=== PATIENT | female | born 1970 | race Caucasian/White ===

== ENCOUNTER → 2019-02-18 | Outpatient (CLI) | payer BC ==
[2019-02-21 07:07] LABS: CHLAMYDIA TRACHOMATIS, NAA Negative (Negative); NEISSERIA GONORRHOEAE, NAA Negative (Negative)
== END | disposition home or self-care (01) ==
LOC: LAB SHORT 15:25 → LAB EV 15:25
PROVIDERS: Nurse Practitioner
DX: Z11.3 Encounter for screening for infections with a predominantly sexual mode of transmission (principal)
CPT/HCPCS: 87491; 87591; G0145

== ENCOUNTER 2019-12-06 23:50 | Emergency (ER) | payer BC ==
[~2019-12-06] VITALS: Ht 170.2 cm; Wt 63.5 kg
[2019-12-07] MEDS ORDERED: CYANOCOBALAM (00:04)
[2019-12-07] MEDS ORDERED: EUTHYROX112 MC1 (00:04)
[2019-12-07] MEDS ORDERED: Alprazolam1 MG PO (00:05)
[2019-12-07] MEDS ORDERED: OXYC10TA19 (00:05)
[2019-12-07] MEDS ORDERED: Percocet 5-3251 EACH PO (00:58)
== END 2019-12-07 01:47 | disposition home or self-care (01) ==
LOC: ER 23:50
DX: S92.351A Displaced fracture of fifth metatarsal bone, right foot, initial encounter for closed fracture (principal); S52.121A Displaced fracture of head of right radius, initial encounter for closed fracture; S20.212A Contusion of left front wall of thorax, initial encounter; Z79.899 Other long term (current) drug therapy; W10.9XXA Fall (on) (from) unspecified stairs and steps, initial encounter
CPT/HCPCS: 73090; 73630; 99283-25; A9270; A9270-GY

== ENCOUNTER 2022-03-06 09:28 | Emergency (ER) | payer BC ==
[~2022-03-06] VITALS: Ht 167.6 cm; Wt 61.2 kg
[~2022-03-06 09:28] MED LIST: ALBU90OI INH; ALPR1 PO; Acetaminophen325 M1 PO; Alprazolam1 MG PO; CYANOCOBALAM; EUTHYROX112 MC1; LEVSOD112 PO; MONT10T PO; OXYC10TA19; PROGESTERONE1000 GM; Percocet 5-3251 EACH PO; SYMBICORT 160-4.6 GM INH; Testosterone5 GM
[2022-03-06 11:01] LABS: Hemoglobin 13.4 g/dL (11.5-16.0); Mean Corpuscular HGB 30.2 pg (26.0-34.0); Mean Corpuscular HGB Conc 34.4 g/dL (31.5-36.5); Mean Corpuscular Volume 88 fL (80-100); Mean Platelet Volume 9.6 fL (9.1-12.4); Platelet Count 254 K/mm3 (150-400); RDW Coefficient Variation 12.2 % (11.7-14.2); RDW Standard Deviation 39.7 fL (35.1-46.3); Red Blood Cell Count 4.43 M/mm3 (3.80-5.20); White Blood Cell Count 10.01 K/mm3 (4.00-11.30)
[2022-03-06 11:16] LABS: Influenza A, PCR NEGATIVE (NEGATIVE); Influenza B, PCR NEGATIVE (NEGATIVE); Resp Syncytial Virus, PCR NEGATIVE (NEGATIVE); SARS-Cov-2 (COVID-19) PCR, MMC NEGATIVE (NEGATIVE)
[2022-03-06 11:45] LABS: BAND PERCENT MAN 38 % (0-8); BASOPHILS PERCENT MAN 1 % (0-2); EOSINOPHILS PERCENT MAN 0 % (0-6); LYMPHOCYTES PERCENT MAN 5 % (21-46); MONOCYTES PERCENT MAN 9 % (4-13); SEG NEUTROPHILS PERCENT MAN 47 % (41-73); TOTAL CELLS COUNTED 100
[2022-03-06 11:47] LABS: Albumin, Blood 2.9 g/dL (3.4-5.0); Albumin/Globulin Ratio 0.7 (0.8-1.8); Bilirubin, Total 0.7 mg/dL (0.1-1.0); Calcium, Blood 8.7 mg/dL (8.5-10.1); Creatinine, Blood 0.62 mg/dL (0.40-1.00); Globulin, Blood 4.3 g/dL (2.2-4.0); Magnesium, Blood 1.9 mg/dL (1.6-2.4); Potassium, Blood 3.1 mmol/L (3.5-5.5); Total Protein, Blood 7.2 g/dL (6.4-8.2)
[2022-03-06] MEDS ORDERED: ONDA4ODT MM (13:51)
[2022-03-06] MEDS ORDERED: PROBIOTIC1 EA13 PO (13:51)
[2022-03-06] MEDS ORDERED: METR500 PO (13:51)
[2022-03-06] MEDS ORDERED: CIPR500 PO (13:51)
== END 2022-03-06 16:55 | disposition home or self-care (01) ==
LOC: ER 09:28
PROVIDERS: Physician Assistant
DX: K52.89 Other specified noninfective gastroenteritis and colitis (principal); Z20.822 Contact with and (suspected) exposure to COVID-19; Z88.5 Allergy status to narcotic agent
CPT/HCPCS: 0241U; 36415; 74177; 80053; 83735; 85025; J0744; J1885; J2405; J7030; Q9967

== ENCOUNTER 2022-03-08 04:50 | Inpatient (IN) | payer BC, OTHER ==
[~2022-03-08] VITALS: Ht 167.6 cm; Wt 64.6 kg
[~2022-03-08 04:50] MED LIST changes: +CIPR500 PO; +METR500 PO; +ONDA4ODT MM; +PROBIOTIC1 EA13 PO
[2022-03-08 05:24] LABS: BASOPHILS ABSOLUTE AUTO 0.09 K/mm3 (0.00-0.23); BASOPHILS PERCENT AUTO 1 % (0-2); EOSINOPHILS ABSOLUTE AUTO 0.11 K/mm3 (0.00-0.68); EOSINOPHILS PERCENT AUTO 1 % (0-6); Hemoglobin 11.5 g/dL (11.5-16.0); IMMATURE GRAN ABSOLUTE AUTO 0.08 K/mm3 (0.00-0.10); IMMATURE GRAN PERCENT AUTO 1 % (0-1); LYMPHOCYTES PERCENT AUTO 7 % (21-46); MONOCYTES ABSOLUTE AUTO 0.97 K/mm3 (0.16-1.47); MONOCYTES PERCENT AUTO 9 % (4-13); Mean Corpuscular HGB 29.3 pg (26.0-34.0); Mean Corpuscular HGB Conc 33.8 g/dL (31.5-36.5); Mean Corpuscular Volume 87 fL (80-100); Mean Platelet Volume 9.1 fL (9.1-12.4); NEUTROPHILS ABSOLUTE AUTO 8.71 K/mm3 (1.96-9.15); NEUTROPHILS PERCENT AUTO 82 % (41-73); Platelet Count 282 K/mm3 (150-400); RDW Coefficient Variation 12.1 % (11.7-14.2); Red Blood Cell Count 3.92 M/mm3 (3.80-5.20); White Blood Cell Count 10.66 K/mm3 (4.00-11.30)
[2022-03-08 05:52] LABS: Albumin, Blood 2.4 g/dL (3.4-5.0); Albumin/Globulin Ratio 0.6 (0.8-1.8); Bilirubin, Total 0.5 mg/dL (0.1-1.0); Bun/Creatinine Ratio 18.4 (12.0-20.0); Calcium, Blood 8.5 mg/dL (8.5-10.1); Creatinine, Blood 0.54 mg/dL (0.40-1.00); Globulin, Blood 4.1 g/dL (2.2-4.0); Potassium, Blood 3.2 mmol/L (3.5-5.5); Total Protein, Blood 6.5 g/dL (6.4-8.2)
--- NOTE | 2022-03-08 20:01 | NUR ---
CALLED DR TRIANA REGARDING PATIENT PAIN AND FEVER. EUFEMIA CANNOT TAKE DILAUDID DUE TO HYPERSENSITIVITY. ORDERS GIVEN FOR ROMINA, TYLENOL, AND D/C DILAUDID
--- NOTE | 2022-03-09 04:37 | NUR ---
CALLED DR ALEJANDRE TO UPDATE THAT PATIENT IS HAVING JOANN WATERY STOOLS. ORDERS GIVEN FOR GI CONSULT, CBC, NPO, AND H&H Q6 TIMES 4
[2022-03-09 05:48] LABS: Hemoglobin 10.3 g/dL (11.5-16.0); Mean Corpuscular HGB 30.1 pg (26.0-34.0); Mean Corpuscular HGB Conc 33.2 g/dL (31.5-36.5); Mean Corpuscular Volume 91 fL (80-100); Mean Platelet Volume 9.5 fL (9.1-12.4); Platelet Count 269 K/mm3 (150-400); RDW Coefficient Variation 12.3 % (11.7-14.2); RDW Standard Deviation 40.7 fL (35.1-46.3); Red Blood Cell Count 3.42 M/mm3 (3.80-5.20); White Blood Cell Count 7.63 K/mm3 (4.00-11.30)
[2022-03-09 06:06] LABS: Albumin, Blood 2.1 g/dL (3.4-5.0); Albumin/Globulin Ratio 0.6 (0.8-1.8); Bilirubin, Total 0.3 mg/dL (0.1-1.0); Bun/Creatinine Ratio 15.1 (12.0-20.0); Calcium, Blood 7.8 mg/dL (8.5-10.1); Creatinine, Blood 0.6 mg/dL (0.40-1.00); Globulin, Blood 3.3 g/dL (2.2-4.0); Potassium, Blood 3.2 mmol/L (3.5-5.5); Total Protein, Blood 5.4 g/dL (6.4-8.2)
[2022-03-09 06:20] LABS: BAND PERCENT MAN 23 % (0-8); BASOPHILS PERCENT MAN 0 % (0-2); EOSINOPHILS ABSOLUTE MAN 0.15 K/mm3 (0.00-0.68); EOSINOPHILS PERCENT MAN 2 % (0-6); LYMPHOCYTES ABSOLUTE MAN 1.14 K/mm3 (0.84-5.20); LYMPHOCYTES PERCENT MAN 15 % (21-46); MONOCYTES ABSOLUTE MAN 0.45 K/mm3 (0.16-1.47); MONOCYTES PERCENT MAN 6 % (4-13); MYELOCYTE ABSOLUTE MAN 0.07 K/mm3 (0.00-0.00); MYELOCYTE PERCENT MAN 1 % (0-0); NEUTROPHILS ABSOLUTE MAN 5.79 K/mm3 (1.96-9.15); SEG NEUTROPHILS PERCENT MAN 53 % (41-73); TOTAL CELLS COUNTED 100
--- NOTE | 2022-03-09 06:38 | NUR ---
PATIENT IN MODERATE AMOUNT OF PAIN THROUGHOUT SHIFT. NPO AT MIDNIGHT. 0315 PATIENT WENT TO RESTROOM AND HAD COPIOUS AMOUNTS OF BRIGHT RED JOANN WATERY STOOLS. MD CALLED AND ORDERS GIVEN FOR GI CONSULT AND SERIAL H&H Q6 X4. ALERT AND ORIENTED, RA, 20 RAC W/ NS @100, TELE SR.
[2022-03-09 11:29] LABS: Hematocrit 20.5 % (33.0-51.0); Hemoglobin 6.9 g/dL (11.5-16.0)
--- NOTE | 2022-03-09 17:31 | NUR ---
0700: Receive ongoing report from nurse. Pt having copious amounts of blood coming out when making a bowel movement. Nun caps filled with 500cc of blood and large clots. 0755 78/45 HR 104 RR 14 Temp 99.3 02 100% Physician paged about copious amount of blood in stool, hypotensive but asymptomatic other than abd pain. Physician stated no bolus but to keep fluids at 100ml/hr. Made Charge nurse Krystin and Loni aware that patient needs a PCU or ICU. Patient is actively bleeding no nausea and vomiting but hypotensive. H/H 10.6 REPEAT IS AT NOON. 0806 82/52 HR 119 Physician at bedside. Saw the nun caps filled with blood. H/H order, 2PRBC om standby, Lactic Acid, Protonix Drip ordered. TYPE AND SCREEN AND BLOOD ADMINSTRATIONS Hemoglobin 6.9 - Lactic Acid 2 - Large amounts of blood stool 2000cc from 7am-2pm Blood Transfuse -- charge nurse called GI consult and transfer to ICU Bedside Report given to JESUS HECTOR. Charge naga
--- NOTE | 2022-03-09 17:41 | NUR ---
03/09/22 1742 Ronny Galdamez PT IN ICU. CONTINUOUS MONITOR. DR. PERERA HERE PROVIDING SEDATION.
--- NOTE | 2022-03-09 19:05 | NUR ---
SHIFT SUMMARY PT ARRIVED TO ICU FROM MED FLOOR, BEDSIDE REPORT GIVEN UPON ARRIVAL. PT ADMITTED FOR RECTAL BLEEDING, SUBSTANTIAL INCREASE IN BLEEDING THIS AM AND T/O DAY, APPROXIMATELY 2L OUT. PT ALERT AND ORIENTED, FOLLOWING COMMANDS, DYSON. BP HYPOTENSIVE, FIRST UNIT OF BLOOD INFUSING UPON ARRIVAL, 2 TOTAL UNITS ADMINSTERED. PT DID NOT RECEIVE ANY PRESSORS. SATS >90% ON RA. SINUS TACH ON THE MONITOR. AFTER ARRIVAL SECOND IV ESTABLISHED AND PT TAKEN FOR CT SCAN. SHORTLY AFTER GI AT BEDSIDE FOR SCOPE. DIAGNOSIS OF SEVERE ULCERATIVE COLITIS. NO COMPLICATIONS DURING SCOPE, 2L LR GIVEN DURING THAT TIME. PT AWAKENED WITHOUT ISSUE. ASSISTED TO BEDSIDE COMMODE FOR MODERATE AMNT OF BLOODY STOOL, ALSO APPROX 2O0ML URINE OUT. PT TOLERATING WATER AT THIS TIME. REPORT GIVEN TO ONCOMING NURSE.
[2022-03-09 20:03] LABS: Hematocrit 24.9 % (33.0-51.0); Hemoglobin 8.6 g/dL (11.5-16.0)
[2022-03-09 21:35] LABS: Adenovirus F 40/41 Not Detected (NOT DETECT); Astrovirus Not Detected (NOT DETECT); Campylobacter Sp Not Detected (NOT DETECT); Cryptosporidium Not Detected (NOT DETECT); Cyclospora Cayetanensis Not Detected (NOT DETECT); E. Coli O157 Not Detected (NOT DETECT); Entamoeba Histolytica Not Detected (NOT DETECT); Enteroaggregative E. coli-EAEC Not Detected (NOT DETECT); Enteropathogenic E. coli-EPEC Not Detected (NOT DETECT); Enterotoxigenic E. coli-ETEC Not Detected (NOT DETECT); Giardia Lamblia Not Detected (NOT DETECT); Norovirus GI/GII Not Detected (NOT DETECT); Plesiomonas Shigelloides Not Detected (NOT DETECT); Rotavirus A Not Detected (NOT DETECT); Salmonella Sp Not Detected (NOT DETECT); Sapovirus Not Detected (NOT DETECT); Shiga Toxin-prod E. coli-STEC Not Detected (NOT DETECT); Shigella/Enteroin E. coli-EIEC Not Detected (NOT DETECT); Vibrio Cholerae Not Detected (NOT DETECT); Vibrio Sp Not Detected (NOT DETECT); Yersinia Enterocolitica Not Detected (NOT DETECT)
--- NOTE | 2022-03-09 22:47 | NUR ---
PT REQUEST TO LEAVE UNIT TO WALK AROUND. EDUCATED HER THAT WAS NO SAFE DUE TO RECENT SEIZURE ACTIVITY AND MEDICATIONS GIVEN. PT WAS ARGUMENTATIVE AND STATED SHE WANTED TO LEAVE AMA. PT WAS EDUCATED AGAIN THAT SHE WOULD HAVE TO HAVE SOMEONE SIGN HER OUT IF SHE WANTED TO LEAVE AMA.
[2022-03-09 23:21] LABS: Hematocrit 20.6 % (33.0-51.0); Hemoglobin 7.3 g/dL (11.5-16.0)
[2022-03-10 02:05] LABS: Hematocrit 19.2 % (33.0-51.0); Hemoglobin 6.7 g/dL (11.5-16.0)
[2022-03-10 03:34] LABS: BASOPHILS ABSOLUTE AUTO 0.04 K/mm3 (0.00-0.23); BASOPHILS PERCENT AUTO 0 % (0-2); EOSINOPHILS ABSOLUTE AUTO 0.02 K/mm3 (0.00-0.68); EOSINOPHILS PERCENT AUTO 0 % (0-6); Hematocrit 20.6 % (33.0-51.0); Hemoglobin 7.1 g/dL (11.5-16.0); IMMATURE GRAN ABSOLUTE AUTO 0.16 K/mm3 (0.00-0.10); IMMATURE GRAN PERCENT AUTO 1 % (0-1); LYMPHOCYTES ABSOLUTE AUTO 0.93 K/mm3 (0.84-5.20); LYMPHOCYTES PERCENT AUTO 8 % (21-46); MONOCYTES ABSOLUTE AUTO 0.37 K/mm3 (0.16-1.47); MONOCYTES PERCENT AUTO 3 % (4-13); Mean Corpuscular HGB 29.6 pg (26.0-34.0); Mean Corpuscular HGB Conc 34.5 g/dL (31.5-36.5); Mean Platelet Volume 9.5 fL (9.1-12.4); NEUTROPHILS ABSOLUTE AUTO 10.88 K/mm3 (1.96-9.15); NEUTROPHILS PERCENT AUTO 88 % (41-73); Platelet Count 294 K/mm3 (150-400); RDW Coefficient Variation 13.6 % (11.7-14.2); RDW Standard Deviation 42.8 fL (35.1-46.3)
[2022-03-10 03:42] LABS: Mean Corpuscular Volume 86 fL (80-100)
[2022-03-10 04:01] LABS: Albumin, Blood 1.6 g/dL (3.4-5.0); Albumin/Globulin Ratio 0.6 (0.8-1.8); Bilirubin, Total 0.5 mg/dL (0.1-1.0); Bun/Creatinine Ratio 12.9 (12.0-20.0); Calcium, Blood 7.1 mg/dL (8.5-10.1); Creatinine, Blood 0.62 mg/dL (0.40-1.00); Globulin, Blood 2.6 g/dL (2.2-4.0); Potassium, Blood 3.6 mmol/L (3.5-5.5); Total Protein, Blood 4.2 g/dL (6.4-8.2)
--- NOTE | 2022-03-10 05:33 | NUR ---
SHIFT SUMMERY PT IS ALERT AND ORIENTED X4, S/P UPPER AND LOWER ENDOSCOPY YESTERDAY EVENING. PT REQUIRED A TRANSFUSION OF PRBC ON MY SHIFT DUE TO LOW H&H. SHE HAD 3 LARGE BRIGHT RED BLOODY STOOLS W/CLOTS AT THE BEGINNING OF THE SHIFT AND ONE MUCH SMALLER ON AROUND 0100. SHE HAS HAD NO N/V. BP HAVE BEEN SOFT, SHE RECEIVED A 250ML BOLUS PRIOR TO HER BLOOD TRANSFUSION. SHE HAS LEVOPHED ON SB IF NEEDED. SHE HAS BEEN SR/ST ON THE GREENSKEEPER LABORER. SHE WAS MEDICATED FOR PAIN EARLY IN THE SHIFT AND HAS NOT REQUIRED ANYTHING FURTHER THE REMAINDER OF THE NIGHT. A NEW RIGHT UPPER ARM POWER GLIDE WAS PLACED, PT TOLERATED WELL. SHE IS ON ROOM AIR, OXYGEN SAT >95% THROUGHOUT THE NIGHT. SHE HAS VOIDED SEVERAL TIMES IN THE BEDSIDE COMMODE. SHE HAS BEEN AFEBRILE AND HAS HAD NO EPISODES OF ACUTE DISTRESS SO FAR THROUGHTOUT THIS SHIFT.
[2022-03-10 08:30] LABS: Hematocrit 22.5 % (33.0-51.0)
--- NOTE | 2022-03-10 10:29 | NUR ---
SHIFT ASSESSMENT ASSUMED CARE OF PT @ 0700. PT ALERT AND ORIENTED, FOLLOWING COMMANDS, DYSON. INITIALLY ON 2MCG'S LEVOPHED, TITRATED OFF BY 0800 c MAP >65. PT C/O 09/09 ABD PAIN, MEDICATED WITH PRN PAIN MEDS. UTILIZING BEDSIDE COMMODE WITH STANDBY ASSIST. TWO SMALL <10ML BLOOD CLOTS FROM RECTUM THIS AM. TOLERATING CLEAR LIQUIDS AT THIS TIME, NO N/V. WILL MONITOR CLOSELY.
[2022-03-10 17:33] LABS: Hematocrit 21.8 % (33.0-51.0); Hemoglobin 7.7 g/dL (11.5-16.0)
--- NOTE | 2022-03-10 18:35 | NUR ---
SHIFT SUMMARY PT REMAINS ALERT AND ORIENTED, FOLLOWING COMMANDS, AMBULATING WITH S/B ASSISTANCE TO BEDSIDE COMMODE, FREQUENTLY REQUIRING ASSISTANCE TO COMMODE TO URINATE. NO OBVIOUS BLOODY STOOLS TODAY, APPEARS TO BE MUCOUSY c STOOL, SMALL AMNT OF STOOL. DIET ADVANCED TO FULL LIQUID, TOLERATING WELL, NO N/V. BP WNL, REMAINS OFF PRESSORS. Q8H H&H. PTS PAIN IS INCREASING, THIS NURSE DISCUSSED OPTIONS FOR PAIN CONTROL WITH PT, WILL RELAY TO ONCOMING NURSE.
[2022-03-11 06:37] LABS: BASOPHILS ABSOLUTE AUTO 0.02 K/mm3 (0.00-0.23); BASOPHILS PERCENT AUTO 0 % (0-2); EOSINOPHILS ABSOLUTE AUTO 0.01 K/mm3 (0.00-0.68); EOSINOPHILS PERCENT AUTO 0 % (0-6); Hemoglobin 7.4 g/dL (11.5-16.0); IMMATURE GRAN ABSOLUTE AUTO 0.08 K/mm3 (0.00-0.10); IMMATURE GRAN PERCENT AUTO 1 % (0-1); LYMPHOCYTES ABSOLUTE AUTO 0.77 K/mm3 (0.84-5.20); LYMPHOCYTES PERCENT AUTO 9 % (21-46); MONOCYTES ABSOLUTE AUTO 0.65 K/mm3 (0.16-1.47); MONOCYTES PERCENT AUTO 7 % (4-13); Mean Corpuscular HGB 30.6 pg (26.0-34.0); Mean Corpuscular HGB Conc 35.2 g/dL (31.5-36.5); Mean Corpuscular Volume 87 fL (80-100); Mean Platelet Volume 9.5 fL (9.1-12.4); NEUTROPHILS ABSOLUTE AUTO 7.58 K/mm3 (1.96-9.15); NEUTROPHILS PERCENT AUTO 83 % (41-73); Platelet Count 314 K/mm3 (150-400); RDW Coefficient Variation 14.2 % (11.7-14.2); RDW Standard Deviation 44.9 fL (35.1-46.3); Red Blood Cell Count 2.42 M/mm3 (3.80-5.20); White Blood Cell Count 9.11 K/mm3 (4.00-11.30)
[2022-03-11 06:55] LABS: Albumin, Blood 1.8 g/dL (3.4-5.0); Anion Gap 4 mmol/L (6-16); Blood Urea Nitrogen 6 mg/dL (8-24); Bun/Creatinine Ratio 11.7 (12.0-20.0); CO2, Blood 29 mmol/L (21-32); Calcium, Blood 7.8 mg/dL (8.5-10.1); Chloride, Blood 107 mmol/L (98-108); Creatinine, Blood 0.51 mg/dL (0.40-1.00); Glomerular Filtration Rate 114 (60-); Glucose, Blood 152 mg/dL (70-99); Phosphorus, Blood 3.2 mg/dL (2.5-4.9); Potassium, Blood 3.9 mmol/L (3.5-5.5); Sodium, Blood 140 mmol/L (136-145)
--- NOTE | 2022-03-11 07:38 | NUR ---
SHIFT ASSESSMENT ASSUMED CARE OF PT @ 0700. PT ALERT AND ORIENTED, SITTING UPRIGHT IN BED. PT APPEARS VERY UNCOMFORTBALE, C/O 7/10 [address] ASTORGA NOTIFIED REGARDING PAIN, NEW ORDERS PLACED. UP MOST OF THE NIGHT TO GET TO BEDSIDE COMMODE PER NOC NURSE AND PT, NO BLOODY STOOL, LIQUID/BROWN. NSR ON LICENSED PSYCHIATRIC TECHNICIAN, BP STABLE-MAP >65, PER PT HER NORMAL BP IS LOW. H&H TRENDED DOWN ANOTHER 0.3 FROM 7.7 TO 7.4. NO OTHER ACUTE CHANGES FROM YESTERDAY.
--- NOTE | 2022-03-11 09:17 | NUR ---
UPDATE PT NOW MEDICAL STATUS, NO TELE. TOLERATING IV PAIN MEDS BUT CONTINUES TO COMPLAIN OF MODERATE-SEVERE PAIN. THIS NURSE DISCUSSED OTHER OPTIONS FOR TREATING PAIN WELL REALISTIC PAIN EXPECTATIONS.
--- NOTE | 2022-03-11 14:28 | NUR ---
SHIFT SUMMARY PT REMAINS ALERT AND ORIENTED, FOLLOWING COMMANDS, TOLERATING FULL LIQUID DIET WELL. PT CONTINUES TO C/O ABDOMINAL PAIN 09/09 BUT WITH SECOND DOSE OF DILAUDID PAIN IS NOW TOLERABLE PER PATIENT. PT HAD MULTIPLE SMALL LOOSE BOWEL TODAY, NO BLOODY STOOL. VSS. REPORT GIVEN TO MEDICAL FLOOR NURSE, ADMITTED TO ROOM 340.
--- NOTE | 2022-03-11 14:49 | NUR ---
ARRIVAL: PT ARRIVED TO ROOM 340 FROM ICU 13 AT 1440 VIA WHEELCHAIR. PT ORIENTED TO ROOM AND HOW TO USE BED CONTROLS AND CALL LIGHT. ALL BELONGINGS SENT WITH PT.
--- NOTE | 2022-03-11 17:05 | NUR ---
SHIFT SUMMARY: PT ALERT AND ORIENTED X4. PT BROUGHT FROM ICU13 THIS AFTERNOON. PT HAS NOT C/O PAIN, N/V SINCE ADMISSION. PT IS VERY PLEASANT AND COOPERATIVE WITH CARE. POWERGLIDE AND IV FLUSH W/O COMPLICATIONS. PT CURRENTLY INDEPENDENT IN SHOWER. CALL LIGHT IN REACH. WILL CONTINUE TO MONITOR.
--- NOTE | 2022-03-12 03:53 | NUR ---
Patient resting in bed, prn medication given for pain and nausea, pain continues to be an issue, only partially resolved with current prn medication.
[2022-03-12 05:09] LABS: HBSAG SCREEN Negative (Negative); HCV AB <0.1 (0.0-0.9); HEP A AB, IGM Negative (Negative); HEP B CORE AB, IGM Negative (Negative)
[2022-03-12 06:04] LABS: BASOPHILS ABSOLUTE AUTO 0.01 K/mm3 (0.00-0.23); BASOPHILS PERCENT AUTO 0 % (0-2); EOSINOPHILS PERCENT AUTO 0 % (0-6); Hematocrit 22.1 % (33.0-51.0); Hemoglobin 7.3 g/dL (11.5-16.0); IMMATURE GRAN ABSOLUTE AUTO 0.09 K/mm3 (0.00-0.10); IMMATURE GRAN PERCENT AUTO 1 % (0-1); LYMPHOCYTES ABSOLUTE AUTO 0.65 K/mm3 (0.84-5.20); LYMPHOCYTES PERCENT AUTO 9 % (21-46); MONOCYTES ABSOLUTE AUTO 0.28 K/mm3 (0.16-1.47); MONOCYTES PERCENT AUTO 4 % (4-13); Mean Corpuscular HGB 29.4 pg (26.0-34.0); Mean Corpuscular Volume 89 fL (80-100); Mean Platelet Volume 9.7 fL (9.1-12.4); NEUTROPHILS ABSOLUTE AUTO 5.99 K/mm3 (1.96-9.15); NEUTROPHILS PERCENT AUTO 85 % (41-73); Platelet Count 417 K/mm3 (150-400); RDW Coefficient Variation 13.9 % (11.7-14.2); RDW Standard Deviation 44.9 fL (35.1-46.3); Red Blood Cell Count 2.48 M/mm3 (3.80-5.20); White Blood Cell Count 7.02 K/mm3 (4.00-11.30)
[2022-03-12 10:56] LABS: Bilirubin, Total 0.2 mg/dL (0.1-1.0); Potassium, Blood 4.2 mmol/L (3.5-5.5)
[2022-03-12 10:58] LABS: Albumin/Globulin Ratio 0.7 (0.8-1.8); Bun/Creatinine Ratio 13.2 (12.0-20.0); Calcium, Blood 8.3 mg/dL (8.5-10.1); Creatinine, Blood 0.53 mg/dL (0.40-1.00); Magnesium, Blood 2.6 mg/dL (1.6-2.4); Phosphorus, Blood 4.2 mg/dL (2.5-4.9)
[2022-03-12 10:59] LABS: C-REACTIVE PROTEIN, EXT RANGE 4.28 mg/dL (0.000-0.300); Percent Saturation 19.9 % (15.0-50.0)
[2022-03-12 14:10] LABS: QUANTIFERON MITOGEN VALUE >10.00 IU/mL (.); QUANTIFERON NIL VALUE 0.06 IU/mL (.); QUANTIFERON TB1 AG VALUE 0.17 IU/mL (.); QUANTIFERON TB2 AG VALUE 0.13 IU/mL (.); QUANTIFERON-TB GOLD PLUS Negative (Negative)
--- NOTE | 2022-03-12 16:22 | NUR ---
Received bedside report from ongoing nurse. Pt resting comfortably in bed. Pt states it's been hard trying to get her pain under control. Spoke with physicia made changes to her pain medication check emar.
--- NOTE | 2022-03-13 04:45 | NUR ---
CHIEF INNOVATION OFFICER SUMMARY NO ACUTE EVENTS. PT HAS BEEN UP AD ТАТЬЯНА/INDEPENDENT IN ROOM. DC'D LEFT AC IV DUE TO LEAKING; DILLAN POWER GLIDE--DOES NOT DRAW. PT A/OX4. HAS BEEN ON FULL LIQUID DIET--CHICK BROTH, JELLO, AND YOGURT THIS SHIFT-- PT HAD SOME INCREASED NAUSEA AND PAIN AFTER EATING. PT CONT TO REPORT PAIN IN ABDOMEN; MED W/ALTERNATING DILAUDID AND PERCOCET P/EMAR. PT REPORTS NO APPARENT VISIBLE BLOOD IN STOOL; CONT TO HAVE SMALL LOOSE STOOLS. VS REVIEWED/STABLE. ABLE TO MAKE NEEDS KNOWN; CALL LIGHT IN REACH.
[2022-03-13 05:44] LABS: BASOPHILS ABSOLUTE AUTO 0.01 K/mm3 (0.00-0.23); BASOPHILS PERCENT AUTO 0 % (0-2); EOSINOPHILS PERCENT AUTO 0 % (0-6); Hematocrit 20.7 % (33.0-51.0); Hemoglobin 6.8 g/dL (11.5-16.0); IMMATURE GRAN PERCENT AUTO 3 % (0-1); LYMPHOCYTES ABSOLUTE AUTO 0.88 K/mm3 (0.84-5.20); LYMPHOCYTES PERCENT AUTO 13 % (21-46); MONOCYTES ABSOLUTE AUTO 0.49 K/mm3 (0.16-1.47); MONOCYTES PERCENT AUTO 7 % (4-13); Mean Corpuscular HGB 30.4 pg (26.0-34.0); Mean Corpuscular HGB Conc 32.9 g/dL (31.5-36.5); Mean Corpuscular Volume 92 fL (80-100); Mean Platelet Volume 9.5 fL (9.1-12.4); NEUTROPHILS ABSOLUTE AUTO 5.02 K/mm3 (1.96-9.15); NEUTROPHILS PERCENT AUTO 76 % (41-73); NRBC ABSOLUTE 0.02 K/mm3 (0.00-0.02); NRBC Auto 0.3 /100 WBC (0.0-0.2); Platelet Count 440 K/mm3 (150-400); RDW Coefficient Variation 13.7 % (11.7-14.2); RDW Standard Deviation 46.2 fL (35.1-46.3); Red Blood Cell Count 2.24 M/mm3 (3.80-5.20)
[2022-03-13 06:18] LABS: Bun/Creatinine Ratio 9.3 (12.0-20.0); Calcium, Blood 8.1 mg/dL (8.5-10.1); Creatinine, Blood 0.65 mg/dL (0.40-1.00); Potassium, Blood 4.2 mmol/L (3.5-5.5)
--- NOTE | 2022-03-13 17:17 | NUR ---
Received Report from ongoing nurse at bedside. Pt resting comfortably in bed. Hemoglobin at 6.8 pt will receive 1 unit of PRBC. Pt axox4. Pt complaining of abd pain and states traces of blood in stool. Spoke with Gi physician and gave an update on patient. Pt vital signs stable through out the day. Will continue to monitor patient.
--- NOTE | 2022-03-14 05:13 | NUR ---
TAX LAWYER SUMMARY: A&Ox4. PLEASANT AND COOPERATIVE WITH CARE. CALLS APPROPRIATELY AND ABLE TO COMMUNICATE NEEDS EFFECTIVELY. FAIRLY INDEPENDENT WITHIN ROOM; VERY GUARDED GAIT, BUT AMBULATES INDEPENDENTLY. ABLE TO SHOWER THIS SHIFT AND ATE SOME YOGURT. SOME NAUSEA, BUT REPORTS HAVING THIS PRIOR TO CONSUMING YOGURT. ALTERNATING PO OXYCODONE AND IV DILAUDID Q2H AND HAD A DOSE OF DICYCLOMINE @ 0200 WITH LITTLE TO NO RELIEF, BUT WILL CONTINUE TO TRY IT IN HOPES OF RELIEVING PERSISTENT ABD PAIN. DENIES HAVING ANY BLOOD IN STOOL. HAS DECLINED TO WEAR SCD s D/T FREQUENT AMBULATION. ANTICIPATE REPEAT COLONOSCOPY AND ABD CT. LABS THIS AM. WILL REPORT TO ONCOMING RN.
[2022-03-14 05:53] LABS: Hemoglobin 8.6 g/dL (11.5-16.0); Mean Corpuscular HGB Conc 33.1 g/dL (31.5-36.5); Mean Corpuscular Volume 91 fL (80-100); Mean Platelet Volume 9.1 fL (9.1-12.4); Platelet Count 586 K/mm3 (150-400); RDW Coefficient Variation 15.2 % (11.7-14.2); RDW Standard Deviation 49.3 fL (35.1-46.3); Red Blood Cell Count 2.87 M/mm3 (3.80-5.20); White Blood Cell Count 5.67 K/mm3 (4.00-11.30)
[2022-03-14 06:18] LABS: BAND PERCENT MAN 1 % (0-8); BASOPHILS PERCENT MAN 0 % (0-2); EOSINOPHILS PERCENT MAN 0 % (0-6); LYMPHOCYTES ABSOLUTE MAN 0.39 K/mm3 (0.84-5.20); LYMPHOCYTES PERCENT MAN 7 % (21-46); METAMYELOCYTE ABSOLUTE MAN 0.05 K/mm3 (0.00-0.00); METAMYELOCYTE PERCENT MAN 1 % (0-0); MONOCYTES ABSOLUTE MAN 0.22 K/mm3 (0.16-1.47); MONOCYTES PERCENT MAN 4 % (4-13); MYELOCYTE ABSOLUTE MAN 0.22 K/mm3 (0.00-0.00); MYELOCYTE PERCENT MAN 4 % (0-0); PROMYELOCYTE ABSOLUTE MAN 0.05 K/mm3 (0.00-0.00); PROMYELOCYTE PERCENT MAN 1 % (0-0); SEG NEUTROPHILS PERCENT MAN 82 % (41-73); TOTAL CELLS COUNTED 100
[2022-03-14 06:20] LABS: C-REACTIVE PROTEIN, EXT RANGE 1.34 mg/dL (0.000-0.300)
[2022-03-14 06:28] LABS: Bun/Creatinine Ratio 11.1 (12.0-20.0); Calcium, Blood 8.6 mg/dL (8.5-10.1); Creatinine, Blood 0.63 mg/dL (0.40-1.00); Potassium, Blood 4.1 mmol/L (3.5-5.5)
--- NOTE | 2022-03-14 17:56 | NUR ---
Received Report from ongoing nurse. Pt resting comfortably in bed. Pt alert and orientedx4. Pt awaiting GI physician/surgeon to stop by for more answers and questions. Pt only concerns is that she wants to be doing well before being discharged home.
--- NOTE | 2022-03-15 06:33 | NUR ---
CAR PINCHER SUMMARY: A&Ox4. PLEASANT AND COOPERATIVE WITH CARE. CALLS APPROPRIATELY AND IS ABLE TO COMMUNICATE NEEDS EFFECTIVELY. VOIDING AND STOOLING WITHOUT DIFFICULTY. NO BLOODY STOOLS REPORTED. CONTINUES WITH PRN PAIN MEDS: OXY q4h WITH IV DILAUDID FOR BT PAIN. FULL LIQUIDS LAST NIGHT, SIPS AND CHIPS SINCE MIDNIGHT AND ANTICIPATES NPO AFTER NOON TODAY FOR COLONOSCOPY. WILL BEGIN BOWEL PREP @ 0800. INCREASED ANXIETY R/T CURRENT CONDITION; ADMINISTERED PRN ALPRAZOLAM. WILL REPORT TO ONCOMING RN.
[2022-03-15 10:45] LABS: BASOPHILS ABSOLUTE AUTO 0.06 K/mm3 (0.00-0.23); BASOPHILS PERCENT AUTO 1 % (0-2); EOSINOPHILS ABSOLUTE AUTO 0.01 K/mm3 (0.00-0.68); EOSINOPHILS PERCENT AUTO 0 % (0-6); Hematocrit 36.9 % (33.0-51.0); Hemoglobin 11.7 g/dL (11.5-16.0); IMMATURE GRAN ABSOLUTE AUTO 0.57 K/mm3 (0.00-0.10); IMMATURE GRAN PERCENT AUTO 6 % (0-1); LYMPHOCYTES PERCENT AUTO 11 % (21-46); MONOCYTES PERCENT AUTO 5 % (4-13); Mean Corpuscular HGB 29.5 pg (26.0-34.0); Mean Corpuscular HGB Conc 31.7 g/dL (31.5-36.5); Mean Corpuscular Volume 93 fL (80-100); Mean Platelet Volume 8.8 fL (9.1-12.4); NEUTROPHILS ABSOLUTE AUTO 7.85 K/mm3 (1.96-9.15); NEUTROPHILS PERCENT AUTO 78 % (41-73); NRBC ABSOLUTE 0.04 K/mm3 (0.00-0.02); NRBC Auto 0.4 /100 WBC (0.0-0.2); RDW Coefficient Variation 15.9 % (11.7-14.2); RDW Standard Deviation 48.4 fL (35.1-46.3); Red Blood Cell Count 3.96 M/mm3 (3.80-5.20); White Blood Cell Count 10.09 K/mm3 (4.00-11.30)
[2022-03-15 11:05] LABS: Platelet Count 1027 K/mm3 (150-400)
[2022-03-15 11:12] LABS: Albumin, Blood 3.3 g/dL (3.4-5.0); Albumin/Globulin Ratio 0.8 (0.8-1.8); Bilirubin, Total 0.3 mg/dL (0.1-1.0); Bun/Creatinine Ratio 10.3 (12.0-20.0); Creatinine, Blood 0.78 mg/dL (0.40-1.00); Globulin, Blood 4.2 g/dL (2.2-4.0); Potassium, Blood 4.4 mmol/L (3.5-5.5); Total Protein, Blood 7.5 g/dL (6.4-8.2)
--- NOTE | 2022-03-15 14:54 | NUR ---
Lungs clear T/O to Auscultation. Pre-Op teaching done. Pt verbalizes understanding. Patient confirms NPO status and agrees with scheduled surgery. PT BROUGHT TO [facility] VIA GURNEY. PT ON RM AIR. PT REPORTING MINOR ABDOMEN AND FLANK PAIN. FRIEND AT BEDSIDE. VSS. PT ON RM AIR.
[2022-03-15 15:04] LABS: BASOPHILS ABSOLUTE AUTO 0.03 K/mm3 (0.00-0.23); BASOPHILS PERCENT AUTO 0 % (0-2); EOSINOPHILS PERCENT AUTO 0 % (0-6); Hematocrit 30.9 % (33.0-51.0); Hemoglobin 9.9 g/dL (11.5-16.0); IMMATURE GRAN ABSOLUTE AUTO 0.36 K/mm3 (0.00-0.10); IMMATURE GRAN PERCENT AUTO 5 % (0-1); LYMPHOCYTES ABSOLUTE AUTO 0.76 K/mm3 (0.84-5.20); LYMPHOCYTES PERCENT AUTO 10 % (21-46); MONOCYTES ABSOLUTE AUTO 0.51 K/mm3 (0.16-1.47); MONOCYTES PERCENT AUTO 7 % (4-13); Mean Corpuscular HGB 30.3 pg (26.0-34.0); Mean Corpuscular Volume 95 fL (80-100); Mean Platelet Volume 8.8 fL (9.1-12.4); NEUTROPHILS ABSOLUTE AUTO 5.82 K/mm3 (1.96-9.15); NEUTROPHILS PERCENT AUTO 78 % (41-73); NRBC ABSOLUTE 0.02 K/mm3 (0.00-0.02); NRBC Auto 0.3 /100 WBC (0.0-0.2); Platelet Count 798 K/mm3 (150-400); RDW Coefficient Variation 15.6 % (11.7-14.2); RDW Standard Deviation 48.2 fL (35.1-46.3); Red Blood Cell Count 3.27 M/mm3 (3.80-5.20); White Blood Cell Count 7.48 K/mm3 (4.00-11.30)
--- NOTE | 2022-03-15 15:15 | NUR ---
Ambulatory in Day Surgery.
--- NOTE | 2022-03-15 16:01 | NUR ---
03/15/22 160 Yumi Peterson HISTORY, CHART, MEDICATIONS AND ALLERGIES REVIEWED BEFORE START OF PROCEDURE. PATIENT CONFIRMS NPO STATUS AND AGREES WITH SCHEDULED PROCEDURE. 3-LEAD EKG REVIEWED WITH PHYSICIAN PRIOR TO START OF PROCEDURE. MONITOR INTACT WITH CONTINUOUS PULSE OXIMETRY,CAPNOGRAPHY, 3-LEAD EKG, INTERMITTENT BP. SUPPLEMENTAL O2 TO BE TITRATED THROUGHOUT PROCEDURE TO MAINTAIN O2 SATURATION ABOVE 90%. PATIENT DETERMINED TO BE ASA APPROPRIATE FOR PROPOFOL SEDATION PRIOR TO START OF PROCEDURE BY DR. PATTON
--- NOTE | 2022-03-15 16:33 | NUR ---
Received direct admit for abnormal calcium level. Pt Norma and her Ernesto at bedside. Pt axox3, states she's been feeling a little sick to her stomach lately. States she's suppose to have thyroid surgery soon, but surgeon will not proceed with surgery with calcium level elevated. Orders placed into computer. 20gauge IV placed in right AC. 0.9 NS BOLUS. 0.9 100ML/HR AND ZOMETA running currently. Pt placed on Tele. Will continue to monitor.
--- NOTE | 2022-03-15 16:43 | NUR ---
Received report from ongoing nurse. Pt resting comfortably in bed. MPO at midnight. Ice Chips/Water until noon. Critical platelet count 1027.. Dr. PEREZ CALLED. LR BOLUS REPEATED/ CBC WITHIN TWO HOURS. COLONOSCOPY MAY BE AT 1430. PT axox4.
--- NOTE | 2022-03-15 16:50 | NUR ---
DR PATTON TALKING WITH PATIENT AT BEDSIDE PRIOR TO TAKING PATIENT TO HER ROOM. PT IS AWAKE AND ASKING QUESTIONS. FRIEND AT BEDSIDE PER PT REQUEST TO LISTEN TO DR. PATTON'S FINDINGS.
--- NOTE | 2022-03-15 17:38 | NUR ---
Pt back from colonoscopy resting comfortably in bed. Received pain meds per emar.
[2022-03-16 05:00] LABS: BASOPHILS ABSOLUTE AUTO 0.02 K/mm3 (0.00-0.23); BASOPHILS PERCENT AUTO 0 % (0-2); EOSINOPHILS PERCENT AUTO 0 % (0-6); Hematocrit 28.7 % (33.0-51.0); Hemoglobin 9.2 g/dL (11.5-16.0); IMMATURE GRAN ABSOLUTE AUTO 0.35 K/mm3 (0.00-0.10); IMMATURE GRAN PERCENT AUTO 5 % (0-1); LYMPHOCYTES ABSOLUTE AUTO 1.23 K/mm3 (0.84-5.20); LYMPHOCYTES PERCENT AUTO 17 % (21-46); MONOCYTES ABSOLUTE AUTO 0.43 K/mm3 (0.16-1.47); MONOCYTES PERCENT AUTO 6 % (4-13); Mean Corpuscular HGB 29.8 pg (26.0-34.0); Mean Corpuscular HGB Conc 32.1 g/dL (31.5-36.5); Mean Corpuscular Volume 93 fL (80-100); Mean Platelet Volume 8.4 fL (9.1-12.4); NEUTROPHILS ABSOLUTE AUTO 5.23 K/mm3 (1.96-9.15); NEUTROPHILS PERCENT AUTO 72 % (41-73); Platelet Count 766 K/mm3 (150-400); RDW Coefficient Variation 15.6 % (11.7-14.2); RDW Standard Deviation 46.7 fL (35.1-46.3); Red Blood Cell Count 3.09 M/mm3 (3.80-5.20); White Blood Cell Count 7.26 K/mm3 (4.00-11.30)
--- NOTE | 2022-03-16 06:11 | NUR ---
SHIFT SUMMARY NOC PT A/O X 4. VSS. PT HAD C/O OF PN IN ABD FROM [facility] AND MEDICATED PER EMAR. PT HAD LIQUID DIET MODIFIED TO ALLOW PT TO HAVE BOILED EGGS WHICH ARE IN PANTRY REFRIDGERATOR. PT PLEASANT AND COOPERATIVE TO CARE AND COMMUNICATED NEEDS APPROPRIATELY. KEEPING A TIGHT HOLD ON PN MANAGMENT KEPT PT COMFORTABLE FOR MUCH OF SHIFT. PT STILL HAS PG IN DILLAN WHICH DOES NOT DRAW. PT IS EXPECTED TO DISCHARGE HOME 03/16/22. PT IS CURRENTLY RESTING IN BED WITH BED IN LOWEST POSITION, AND CALL LIGHT WITHIN REACH. WCTM.
[2022-03-16 06:15] LABS: Bun/Creatinine Ratio 17.8 (12.0-20.0); Calcium, Blood 8.3 mg/dL (8.5-10.1); Creatinine, Blood 0.62 mg/dL (0.40-1.00); Potassium, Blood 4.3 mmol/L (3.5-5.5)
--- NOTE | 2022-03-16 09:46 | NUR ---
Received report from ongoing nurse. The only over night occurences was getting patient pain under control. Pt resting comfortably in bed. Alert and orientedx4. Pt family member at bedside.
--- NOTE | 2022-03-17 06:35 | NUR ---
SHIFT SUMMARY NOC PT A/O X 4. PT PLEASANT AND COOPERATIVE TO CARE. PT TRANSITIONED FROM TAKING IV DILAUDID AND PO NORCO 7.5 TO JUST PO NOR 10 FOR PN RELIEF SO THAT PT CAN BE D/C HOME. PT TOLERATED WELL T/O NIGHT WITH LESS EPISODES OF CRYING FROM BREAKTHROUGH PN. PT WAS MEDICATED PER PRN TO CONTROL PN MANAGEMENT. PT REPORTED NAUSEA AROUND 0500 AND WAS MEDICATED PER EMAR. PT IS EAGER FOR D/C TO GO HOME. PT IS CURRENTLY RESTING IN BED WITH BED IN LOWEST POSITION, AND CALL LIGHT WITHIN REACH.
[2022-03-17 09:28] LABS: BASOPHILS ABSOLUTE AUTO 0.03 K/mm3 (0.00-0.23); BASOPHILS PERCENT AUTO 0 % (0-2); EOSINOPHILS ABSOLUTE AUTO 0.09 K/mm3 (0.00-0.68); EOSINOPHILS PERCENT AUTO 1 % (0-6); Hematocrit 35.7 % (33.0-51.0); Hemoglobin 11.5 g/dL (11.5-16.0); IMMATURE GRAN PERCENT AUTO 3 % (0-1); LYMPHOCYTES ABSOLUTE AUTO 1.64 K/mm3 (0.84-5.20); LYMPHOCYTES PERCENT AUTO 18 % (21-46); MONOCYTES ABSOLUTE AUTO 0.12 K/mm3 (0.16-1.47); MONOCYTES PERCENT AUTO 1 % (4-13); Mean Corpuscular HGB 29.8 pg (26.0-34.0); Mean Corpuscular HGB Conc 32.2 g/dL (31.5-36.5); Mean Corpuscular Volume 93 fL (80-100); Mean Platelet Volume 8.4 fL (9.1-12.4); NEUTROPHILS ABSOLUTE AUTO 7.07 K/mm3 (1.96-9.15); NEUTROPHILS PERCENT AUTO 77 % (41-73); Platelet Count 880 K/mm3 (150-400); RDW Coefficient Variation 15.9 % (11.7-14.2); RDW Standard Deviation 46.5 fL (35.1-46.3); Red Blood Cell Count 3.86 M/mm3 (3.80-5.20); White Blood Cell Count 9.25 K/mm3 (4.00-11.30)
[2022-03-17 09:45] LABS: Albumin, Blood 2.9 g/dL (3.4-5.0); Albumin/Globulin Ratio 0.8 (0.8-1.8); Bilirubin, Total 0.2 mg/dL (0.1-1.0); Bun/Creatinine Ratio 18.3 (12.0-20.0); Calcium, Blood 8.8 mg/dL (8.5-10.1); Creatinine, Blood 0.71 mg/dL (0.40-1.00); Globulin, Blood 3.5 g/dL (2.2-4.0); Total Protein, Blood 6.4 g/dL (6.4-8.2)
--- NOTE | 2022-03-17 13:56 | NUR ---
Receive ongoing report from nurse. Pt resting comfortably in bed. Physician at bedside will see how patient pain tolerance is going by the afternoon. Spoke with physician she will put in discharge orders for patient.
--- NOTE | 2022-03-17 15:12 | NUR ---
Pt has discharge orders to go home.
--- NOTE | 2022-03-17 15:29 | NUR ---
Pt given hard copy of her script,
--- NOTE | 2022-03-17 15:29 | NUR ---
PT powerglide IV removed.
[2022-03-17] MEDS ORDERED: PERCOCET 10-321 EA10 PO (15:37)
--- NOTE | 2022-03-17 16:20 | NUR ---
Pt received discharge instructions and work note. Pt family at bedside to help pt get home. Pt discharge with all belongings.
== END 2022-03-17 16:09 | disposition home or self-care (01) | DRG 386 ==
LOC: ER 04:50 → ICUW 04:51 → ERHOLD 04:51 → MEDS 04:51 → ERHOLD 04:51 → MEDS 16:10 → ICUW 03-09 15:17 → MEDS 03-09 16:04 → ICUW 03-09 16:04 → MEDS 03-11 14:37
PROVIDERS: Emergency Medicine; Family Medicine; Hospitalist; Internal Medicine; Student in an Organized Health Care Education/Training Program; ADMIT Internal Medicine
PROC: 30233N1 Transfusion of Nonautologous Red Blood Cells into Peripheral Vein, Percutaneous Approach (ICD-10-PCS; principal; 2022-03-09 16:00)
PROC: 30233N1 Transfusion of Nonautologous Red Blood Cells into Peripheral Vein, Percutaneous Approach (ICD-10-PCS; 2022-03-13)
DX: K50.111 Crohn's disease of large intestine with rectal bleeding (principal); D62 Acute posthemorrhagic anemia; E87.20 Acidosis, unspecified; M06.9 Rheumatoid arthritis, unspecified; E03.9 Hypothyroidism, unspecified; M32.9 Systemic lupus erythematosus, unspecified; E87.6 Hypokalemia; E86.0 Dehydration; J45.909 Unspecified asthma, uncomplicated; G47.00 Insomnia, unspecified; F41.9 Anxiety disorder, unspecified; Z88.6 Allergy status to analgesic agent; Z79.2 Long term (current) use of antibiotics; Z79.890 Hormone replacement therapy; Z79.51 Long term (current) use of inhaled steroids; Z79.899 Other long term (current) drug therapy
CPT/HCPCS: 36415; 36430; 74018; 74174; 80048; 80053; 80069; 80074; 82306; 82728; 83540; 83550; 83605; 83690; 83735; 83993; 84100; 84703; 85014; 85018; 85025; 85651; 86140; 86480; 86850; 86900; 86901; 86923; 87040; 87507; 88305; 94640; 94664; 94760; 96365; 96366; 96375; 99285-25; A9270; C1751; C9113; J0171; J1170; J1885; J2001; J2250; J2405; J2543; J2704; J2916; J2930; J3480; J7030; J7050; J7060; J7120; J7512; P9016; Q9967

== ENCOUNTER → 2022-03-23 | Outpatient (CLI) | payer BC, OTHER ==
[~2022-03-23] MED LIST changes: +PERCOCET 10-321 EA10 PO
[2022-03-23 12:47] LABS: BASOPHILS ABSOLUTE AUTO 0.04 K/mm3 (0.00-0.23); BASOPHILS PERCENT AUTO 0 % (0-2); EOSINOPHILS ABSOLUTE AUTO 0.01 K/mm3 (0.00-0.68); EOSINOPHILS PERCENT AUTO 0 % (0-6); Hemoglobin 10.6 g/dL (11.5-16.0); IMMATURE GRAN ABSOLUTE AUTO 0.05 K/mm3 (0.00-0.10); IMMATURE GRAN PERCENT AUTO 1 % (0-1); LYMPHOCYTES ABSOLUTE AUTO 0.45 K/mm3 (0.84-5.20); LYMPHOCYTES PERCENT AUTO 4 % (21-46); MONOCYTES PERCENT AUTO 2 % (4-13); Mean Corpuscular HGB 30.5 pg (26.0-34.0); Mean Corpuscular HGB Conc 32.1 g/dL (31.5-36.5); Mean Corpuscular Volume 95 fL (80-100); Mean Platelet Volume 8.6 fL (9.1-12.4); NEUTROPHILS ABSOLUTE AUTO 9.99 K/mm3 (1.96-9.15); Platelet Count 337 K/mm3 (150-400); RDW Coefficient Variation 15.9 % (11.7-14.2); RDW Standard Deviation 52.4 fL (35.1-46.3); Red Blood Cell Count 3.48 M/mm3 (3.80-5.20); White Blood Cell Count 10.74 K/mm3 (4.00-11.30)
[2022-03-23 13:08] LABS: Albumin, Blood 3.1 g/dL (3.4-5.0); Albumin/Globulin Ratio 0.8 (0.8-1.8); Bilirubin, Total 0.2 mg/dL (0.1-1.0); Bun/Creatinine Ratio 27.5 (12.0-20.0); Calcium, Blood 8.7 mg/dL (8.5-10.1); Creatinine, Blood 0.69 mg/dL (0.40-1.00); Globulin, Blood 3.9 g/dL (2.2-4.0); Potassium, Blood 3.7 mmol/L (3.5-5.5)
[2022-03-23 13:44] LABS: BAND PERCENT MAN 4 % (0-8); BASOPHILS PERCENT MAN 0 % (0-2); EOSINOPHILS PERCENT MAN 0 % (0-6); LYMPHOCYTES ABSOLUTE MAN 0.53 K/mm3 (0.84-5.20); LYMPHOCYTES PERCENT MAN 5 % (21-46); MONOCYTES PERCENT MAN 0 % (4-13); SEG NEUTROPHILS PERCENT MAN 91 % (41-73); TOTAL CELLS COUNTED 100
[2022-03-23 13:47] LABS: NEUTROPHILS PERCENT AUTO 930 % (41-73)
== END | disposition home or self-care (01) ==
LOC: LAB 12:37 → LAB SHORT 12:37
PROVIDERS: Physician Assistant
DX: A41.9 Sepsis, unspecified organism (principal)
CPT/HCPCS: 80053; 83605; 83735; 85025

== ENCOUNTER 2022-07-31 12:29 | Emergency (ER) | payer BC, OTHER ==
[~2022-07-31] VITALS: Ht 167.6 cm; Wt 65.8 kg
[2022-07-31 13:09] LABS: BASOPHILS ABSOLUTE AUTO 0.06 K/mm3 (0.00-0.23); BASOPHILS PERCENT AUTO 1 % (0-2); EOSINOPHILS ABSOLUTE AUTO 0.82 K/mm3 (0.00-0.68); EOSINOPHILS PERCENT AUTO 11 % (0-6); Hematocrit 48.9 % (33.0-51.0); Hemoglobin 16.1 g/dL (11.5-16.0); IMMATURE GRAN ABSOLUTE AUTO 0.01 K/mm3 (0.00-0.10); IMMATURE GRAN PERCENT AUTO 0 % (0-1); LYMPHOCYTES ABSOLUTE AUTO 2.17 K/mm3 (0.84-5.20); LYMPHOCYTES PERCENT AUTO 28 % (21-46); MONOCYTES ABSOLUTE AUTO 0.58 K/mm3 (0.16-1.47); MONOCYTES PERCENT AUTO 8 % (4-13); Mean Corpuscular HGB 30.3 pg (26.0-34.0); Mean Corpuscular HGB Conc 32.9 g/dL (31.5-36.5); Mean Corpuscular Volume 92 fL (80-100); Mean Platelet Volume 9.5 fL (9.1-12.4); NEUTROPHILS ABSOLUTE AUTO 4.01 K/mm3 (1.96-9.15); NEUTROPHILS PERCENT AUTO 52 % (41-73); Platelet Count 311 K/mm3 (150-400); RDW Coefficient Variation 12.9 % (11.7-14.2); RDW Standard Deviation 43.4 fL (35.1-46.3); Red Blood Cell Count 5.31 M/mm3 (3.80-5.20); White Blood Cell Count 7.65 K/mm3 (4.00-11.30)
[2022-07-31 13:26] LABS: Albumin, Blood 4.3 g/dL (3.4-5.0); Bilirubin, Total 0.9 mg/dL (0.1-1.0); Bun/Creatinine Ratio 13.4 (12.0-20.0); Calcium, Blood 9.9 mg/dL (8.5-10.1); Creatinine, Blood 0.75 mg/dL (0.40-1.00); Globulin, Blood 4.1 g/dL (2.2-4.0); Potassium, Blood 4.3 mmol/L (3.5-5.5); Total Protein, Blood 8.4 g/dL (6.4-8.2)
[2022-07-31 15:02] LABS: Source, Urine Clean Catch
[2022-07-31 15:05] LABS: Appearance, Urine Hazy (Clear); Bilirubin, Urine Neg (Neg); Blood, Urine 4+ (Neg); Color, Urine Yellow (P-Yellow); Glucose Qualitative, Urine Neg (Neg); Ketones, Urine 2+ (Neg); Leukocyte Esterase, Urine Neg (Neg); Nitrite, Urine Neg (Neg); Protein, Urine 1+ (Neg); Urobilinogen, Urine NORM (Normal)
[2022-07-31 15:38] LABS: Bacteria Many /hpf; Mucus Mod (0-Heavy); Red Blood Cells, Urine 25-50 /hpf (0-2); Squamous Epithelial Cells Many /hpf (Few); White Blood Cells, Urine 0-2 /hpf (0-5)
[2022-07-31] MEDS ORDERED: Norco 5-325 Ta1 EACH PO (16:41)
[2022-07-31] MEDS ORDERED: CYCL10 PO (16:41)
[2022-07-31 17:00] VITALS: BP 102/70
== END 2022-07-31 17:14 | disposition home or self-care (01) ==
LOC: ER 12:29
PROVIDERS: Physician Assistant
DX: R10.9 Unspecified abdominal pain (principal); Z88.5 Allergy status to narcotic agent; Z88.6 Allergy status to analgesic agent; Z91.018 Allergy to other foods; Z79.51 Long term (current) use of inhaled steroids
CPT/HCPCS: 74176; 80053; 81001; 83690; 85025; J1885; J2405; J7030

== ENCOUNTER 2022-10-05 01:50 | Emergency (ER) | payer BC, OTHER ==
[~2022-10-05] VITALS: Ht 167.6 cm; Wt 63.5 kg
[~2022-10-05 01:50] MED LIST changes: +CYCL10 PO; +Norco 5-325 Ta1 EACH PO
[2022-10-05 03:27] LABS: BASOPHILS ABSOLUTE AUTO 0.02 K/mm3 (0.00-0.23); BASOPHILS PERCENT AUTO 0 % (0-2); EOSINOPHILS PERCENT AUTO 0 % (0-6); Hematocrit 39.1 % (33.0-51.0); Hemoglobin 13.5 g/dL (11.5-16.0); IMMATURE GRAN ABSOLUTE AUTO 0.05 K/mm3 (0.00-0.10); IMMATURE GRAN PERCENT AUTO 1 % (0-1); LYMPHOCYTES ABSOLUTE AUTO 1.28 K/mm3 (0.84-5.20); LYMPHOCYTES PERCENT AUTO 13 % (21-46); MONOCYTES ABSOLUTE AUTO 0.83 K/mm3 (0.16-1.47); MONOCYTES PERCENT AUTO 8 % (4-13); Mean Corpuscular HGB 32.1 pg (26.0-34.0); Mean Corpuscular HGB Conc 34.5 g/dL (31.5-36.5); Mean Corpuscular Volume 93 fL (80-100); Mean Platelet Volume 9.2 fL (9.1-12.4); NEUTROPHILS ABSOLUTE AUTO 7.88 K/mm3 (1.96-9.15); NEUTROPHILS PERCENT AUTO 78 % (41-73); Platelet Count 332 K/mm3 (150-400); RDW Coefficient Variation 12.9 % (11.7-14.2); RDW Standard Deviation 44.3 fL (35.1-46.3); Red Blood Cell Count 4.21 M/mm3 (3.80-5.20); White Blood Cell Count 10.06 K/mm3 (4.00-11.30)
[2022-10-05 03:40] LABS: Alanine Aminotransfer (ALT/SGP 106 U/L (12-78); Albumin, Blood 3.1 g/dL (3.4-5.0); Albumin/Globulin Ratio 0.7 (0.8-1.8); Alk Phos 131 U/L (50-136); Anion Gap 8 mmol/L (6-16); Aspartate Aminotrans (AST/SGOT 33 U/L (12-37); Bilirubin, Direct <0.1 mg/dL (0.0-0.3); Bilirubin, Indirect Unable to Calculate mg/dL (0.1-0.7); Bilirubin, Total 0.3 mg/dL (0.1-1.0); Blood Urea Nitrogen 18 mg/dL (8-24); Bun/Creatinine Ratio 22.4 (12.0-20.0); CO2, Blood 25 mmol/L (21-32); Calcium, Blood 9.5 mg/dL (8.5-10.1); Chloride, Blood 106 mmol/L (98-108); Globulin, Blood 4.4 g/dL (2.2-4.0); Glomerular Filtration Rate 90 (60-); Glucose, Blood 106 mg/dL (70-99); Potassium, Blood 3.9 mmol/L (3.5-5.5); Sodium, Blood 139 mmol/L (136-145); Total Protein, Blood 7.5 g/dL (6.4-8.2)
[2022-10-05 03:50] LABS: Source, Urine Clean Catch
[2022-10-05 03:54] LABS: Bilirubin, Urine Neg (Neg); Blood, Urine 4+ (Neg); Glucose Qualitative, Urine Neg (Neg); Ketones, Urine Neg (Neg); Leukocyte Esterase, Urine 3+ (Neg); Nitrite, Urine Neg (Neg); Protein, Urine 2+ (Neg); Specific Gravity, Urine 1.005 (1.003-1.022); Urobilinogen, Urine NORM (Normal)
[2022-10-05 03:55] LABS: Appearance, Urine Hazy (Clear); Color, Urine Yellow (P-Yellow)
[2022-10-05 04:00] LABS: Bacteria Mod /hpf; Red Blood Cells, Urine 0-2 /hpf (0-2); Squamous Epithelial Cells Few /hpf (Few); White Blood Cells, Urine TNTC /hpf (0-5)
[2022-10-05] MEDS ORDERED: ONDA4ODT MM (07:29)
[2022-10-05] MEDS ORDERED: CEFP200 PO (07:29)
[2022-10-05 07:32] VITALS: BP 88/64
[2022-10-05] MEDS ORDERED: KETO10 PO (07:50)
== END 2022-10-05 07:50 | disposition home or self-care (01) ==
LOC: ER 01:50
PROVIDERS: Student in an Organized Health Care Education/Training Program
DX: N12 Tubulo-interstitial nephritis, not specified as acute or chronic (principal); K92.1 Melena; E03.9 Hypothyroidism, unspecified; K50.90 Crohn's disease, unspecified, without complications; Z88.5 Allergy status to narcotic agent; Z79.899 Other long term (current) drug therapy
CPT/HCPCS: 74177; 80048; 80076; 81001; 83690; 85025; 85651; 86140; 87077; 87086; 87186; 96361; 96374-59; 96375; 99284-25; J0696; J1885; J2405; J7030; Q9967

== ENCOUNTER → 2022-10-11 | Outpatient (CLI) | payer BC, OTHER ==
[~2022-10-11] MED LIST changes: +CEFP200 PO; +KETO10 PO
[2022-10-11 14:23] LABS: BASOPHILS ABSOLUTE AUTO 0.04 K/mm3 (0.00-0.23); BASOPHILS PERCENT AUTO 0 % (0-2); EOSINOPHILS ABSOLUTE AUTO 0.02 K/mm3 (0.00-0.68); EOSINOPHILS PERCENT AUTO 0 % (0-6); Hematocrit 42.8 % (33.0-51.0); IMMATURE GRAN ABSOLUTE AUTO 0.13 K/mm3 (0.00-0.10); IMMATURE GRAN PERCENT AUTO 1 % (0-1); LYMPHOCYTES ABSOLUTE AUTO 1.06 K/mm3 (0.84-5.20); LYMPHOCYTES PERCENT AUTO 10 % (21-46); MONOCYTES ABSOLUTE AUTO 0.18 K/mm3 (0.16-1.47); MONOCYTES PERCENT AUTO 2 % (4-13); Mean Corpuscular HGB 31.3 pg (26.0-34.0); Mean Corpuscular HGB Conc 32.7 g/dL (31.5-36.5); Mean Corpuscular Volume 96 fL (80-100); Mean Platelet Volume 8.7 fL (9.1-12.4); NEUTROPHILS ABSOLUTE AUTO 8.73 K/mm3 (1.96-9.15); NEUTROPHILS PERCENT AUTO 86 % (41-73); Platelet Count 573 K/mm3 (150-400); RDW Coefficient Variation 12.5 % (11.7-14.2); RDW Standard Deviation 44.4 fL (35.1-46.3); Red Blood Cell Count 4.48 M/mm3 (3.80-5.20); White Blood Cell Count 10.16 K/mm3 (4.00-11.30)
[2022-10-11 16:28] LABS: Albumin, Blood 3.5 g/dL (3.4-5.0); Albumin/Globulin Ratio 0.8 (0.8-1.8); Bilirubin, Total 0.2 mg/dL (0.1-1.0); Bun/Creatinine Ratio 20.2 (12.0-20.0); Calcium, Blood 9.9 mg/dL (8.5-10.1); Creatinine, Blood 0.84 mg/dL (0.40-1.00); Globulin, Blood 4.6 g/dL (2.2-4.0); Potassium, Blood 4.4 mmol/L (3.5-5.5); Thyroid Stimulating Hormone 5.45 uIU/mL (0.360-4.800); Total Protein, Blood 8.1 g/dL (6.4-8.2)
== END ==
LOC: LAB SHORT 13:42 → LAB 13:42
PROVIDERS: Physician Assistant
DX: N10 Acute pyelonephritis (principal); R53.83 Other fatigue; K50.10 Crohn's disease of large intestine without complications; M85.851 Other specified disorders of bone density and structure, right thigh; M85.852 Other specified disorders of bone density and structure, left thigh
CPT/HCPCS: 80053; 82306; 84443; 85025; 86140

== ENCOUNTER → 2022-10-11 | Outpatient (CLI) | payer BC, OTHER | LOC: LAB 12:05 → LAB SHORT 12:05 | DX: N10 Acute pyelonephritis (principal) | CPT/HCPCS: 87086 ==

== ENCOUNTER → 2023-01-20 | Outpatient (CLI) | payer BC, OTHER ==
[2023-01-20 15:25] LABS: BASOPHILS ABSOLUTE AUTO 0.06 K/mm3 (0.00-0.23); BASOPHILS PERCENT AUTO 1 % (0-2); EOSINOPHILS ABSOLUTE AUTO 0.52 K/mm3 (0.00-0.68); EOSINOPHILS PERCENT AUTO 5 % (0-6); Hematocrit 40.1 % (33.0-51.0); Hemoglobin 13.3 g/dL (11.5-16.0); IMMATURE GRAN ABSOLUTE AUTO 0.03 K/mm3 (0.00-0.10); IMMATURE GRAN PERCENT AUTO 0 % (0-1); LYMPHOCYTES ABSOLUTE AUTO 1.92 K/mm3 (0.84-5.20); LYMPHOCYTES PERCENT AUTO 18 % (21-46); MONOCYTES ABSOLUTE AUTO 1.06 K/mm3 (0.16-1.47); MONOCYTES PERCENT AUTO 10 % (4-13); Mean Corpuscular HGB 31.5 pg (26.0-34.0); Mean Corpuscular HGB Conc 33.2 g/dL (31.5-36.5); Mean Corpuscular Volume 95 fL (80-100); Mean Platelet Volume 9.8 fL (9.1-12.4); NEUTROPHILS ABSOLUTE AUTO 7.34 K/mm3 (1.96-9.15); NEUTROPHILS PERCENT AUTO 67 % (41-73); Platelet Count 291 K/mm3 (150-400); RDW Coefficient Variation 11.9 % (11.7-14.2); RDW Standard Deviation 41.1 fL (35.1-46.3); Red Blood Cell Count 4.22 M/mm3 (3.80-5.20); White Blood Cell Count 10.93 K/mm3 (4.00-11.30)
[2023-01-20 15:41] LABS: Albumin, Blood 3.9 g/dL (3.4-5.0); Albumin/Globulin Ratio 0.9 (0.8-1.8); Bilirubin, Total 0.8 mg/dL (0.1-1.0); Bun/Creatinine Ratio 19.5 (12.0-20.0); Calcium, Blood 9.7 mg/dL (8.5-10.1); Creatinine, Blood 0.77 mg/dL (0.40-1.00); Globulin, Blood 4.3 g/dL (2.2-4.0); Potassium, Blood 4.8 mmol/L (3.5-5.5); Total Protein, Blood 8.2 g/dL (6.4-8.2)
== END ==
LOC: LAB 15:21 → LAB SHORT 15:21
PROVIDERS: Physician Assistant Medical
DX: N39.0 Urinary tract infection, site not specified (principal); R10.9 Unspecified abdominal pain
CPT/HCPCS: 80053; 85025; 87077; 87086; 87186

== ENCOUNTER 2024-01-27 14:17 | Emergency (ER) | payer BC, OTHER ==
[~2024-01-27] VITALS: Ht 167.6 cm; Wt 63.5 kg
[2024-01-27] MEDS ORDERED: Ondansetron HCl 2 MG / ML 2ML Vial IV ONE ×2 (15:20→20:10)
[2024-01-27 16:08] LABS: BASOPHILS ABSOLUTE AUTO 0.05 K/mm3 (0.00-0.23); BASOPHILS PERCENT AUTO 1 % (0-2); EOSINOPHILS PERCENT AUTO 1 % (0-6); IMMATURE GRAN ABSOLUTE AUTO 0.02 K/mm3 (0.00-0.10); IMMATURE GRAN PERCENT AUTO 0 % (0-1); LYMPHOCYTES ABSOLUTE AUTO 0.87 K/mm3 (0.84-5.20); LYMPHOCYTES PERCENT AUTO 11 % (21-46); MONOCYTES ABSOLUTE AUTO 0.48 K/mm3 (0.16-1.47); MONOCYTES PERCENT AUTO 6 % (4-13); Mean Corpuscular HGB 30.2 pg (26.0-34.0); Mean Corpuscular HGB Conc 33.3 g/dL (31.5-36.5); Mean Corpuscular Volume 91 fL (80-100); Mean Platelet Volume 9.7 fL (9.1-12.4); NEUTROPHILS PERCENT AUTO 82 % (41-73); Platelet Count 301 K/mm3 (150-400); RDW Standard Deviation 39.8 fL (35.1-46.3); Red Blood Cell Count 4.63 M/mm3 (3.80-5.20); White Blood Cell Count 8.22 K/mm3 (4.00-11.30)
[2024-01-27 16:51] LABS: Albumin, Blood 3.5 g/dL (3.4-5.0); Albumin/Globulin Ratio 0.9 (0.8-1.8); Bilirubin, Total 0.7 mg/dL (0.1-1.0); Bun/Creatinine Ratio 25.2 (12.0-20.0); Calcium, Blood 9.6 mg/dL (8.5-10.1); Creatinine, Blood 0.68 mg/dL (0.40-1.00); Globulin, Blood 4.1 g/dL (2.2-4.0); Potassium, Blood 3.6 mmol/L (3.5-5.5); Total Protein, Blood 7.6 g/dL (6.4-8.2)
[2024-01-27] MEDS ORDERED: Ketorolac Tromethamine 15mg Vial IV ONE (19:10)
[2024-01-27] MEDS ORDERED: PredniSONE 20 MG Tab PO ONE (19:10)
[2024-01-27] MEDS ORDERED: MethylPREDNISolone Sod Succ 125 MG Vial IV ONE (19:10)
[2024-01-27] MEDS ORDERED: Famotidine 20 MG Tab PO ONE (19:10)
[2024-01-27 19:28] LABS: Source, Urine Clean Catch
[2024-01-27 19:43] LABS: Appearance, Urine Turbid (Clear); Bilirubin, Urine Neg (Neg); Blood, Urine 3+ (Neg); Color, Urine Yellow (P-Yellow); Glucose Qualitative, Urine Neg (Neg); Ketones, Urine 4+ (Neg); Leukocyte Esterase, Urine Neg (Neg); Nitrite, Urine Neg (Neg); Protein, Urine 2+ (Neg); Specific Gravity, Urine 1.025 (1.003-1.022); Urobilinogen, Urine NORM (Normal)
[2024-01-27 19:58] LABS: Amorphous Heavy (0-Heavy); Bacteria Few /hpf; Red Blood Cells, Urine 0-2 /hpf (0-2); Squamous Epithelial Cells Few /hpf (Few); White Blood Cells, Urine 0-2 /hpf (0-5)
[2024-01-27] MEDS ORDERED: HYDROmorphone HCl/Pf 1MG SYR IV ONE (20:05)
[2024-01-27 20:30] VITALS: BP 100/70
[2024-01-27] MEDS ORDERED: ACET500 PO (20:44)
[2024-01-27] MEDS ORDERED: PRED20 PO (20:44)
[2024-01-27] MEDS ORDERED: ONDA4 PO (20:45)
== END 2024-01-27 20:57 | disposition home or self-care (01) ==
LOC: ER 14:17
PROVIDERS: Emergency Medicine; Physician Assistant
DX: K50.90 Crohn's disease, unspecified, without complications (principal); E03.9 Hypothyroidism, unspecified; Z79.899 Other long term (current) drug therapy; Z79.51 Long term (current) use of inhaled steroids; Z88.5 Allergy status to narcotic agent; Z91.018 Allergy to other foods
CPT/HCPCS: 74177; 80053; 81001; 83690; 84703; 85025; 96374-59; 96375; 96376; 99284-25; A9270; J1171; J1885; J2405; J2919; Q9967

== ENCOUNTER → 2024-06-23 | Outpatient (CLI) | payer BC, OTHER ==
[~2024-06-23] MED LIST changes: +ACET500 PO; +FAMO20 PO; +ONDA4 PO; +PERCOCET 10-321 EA13 PO; +PRED20 PO
== END | disposition home or self-care (01) ==
LOC: LAB SHORT 16:06 → LAB 16:06
DX: N39.0 Urinary tract infection, site not specified (principal)
CPT/HCPCS: 87086

== ENCOUNTER 2024-06-24 04:54 | Inpatient (IN) | payer BC, OTHER ==
[~2024-06-24] VITALS: Ht 167.6 cm; Wt 63.6 kg
[~2024-06-24 04:54] MED LIST changes: -FAMO20 PO; -PERCOCET 10-321 EA13 PO
[2024-06-24 05:31] LABS: BASOPHILS ABSOLUTE AUTO 0.04 K/mm3 (0.00-0.23); BASOPHILS PERCENT AUTO 0 % (0-2); EOSINOPHILS ABSOLUTE AUTO 0.06 K/mm3 (0.00-0.68); EOSINOPHILS PERCENT AUTO 1 % (0-6); Hematocrit 40.6 % (33.0-51.0); Hemoglobin 13.5 g/dL (11.5-16.0); IMMATURE GRAN ABSOLUTE AUTO 0.03 K/mm3 (0.00-0.10); IMMATURE GRAN PERCENT AUTO 0 % (0-1); LYMPHOCYTES ABSOLUTE AUTO 0.95 K/mm3 (0.84-5.20); LYMPHOCYTES PERCENT AUTO 10 % (21-46); MONOCYTES ABSOLUTE AUTO 0.78 K/mm3 (0.16-1.47); MONOCYTES PERCENT AUTO 9 % (4-13); Mean Corpuscular HGB 29.7 pg (26.0-34.0); Mean Corpuscular HGB Conc 33.3 g/dL (31.5-36.5); Mean Corpuscular Volume 89 fL (80-100); Mean Platelet Volume 9.7 fL (9.1-12.4); NEUTROPHILS ABSOLUTE AUTO 7.24 K/mm3 (1.96-9.15); NEUTROPHILS PERCENT AUTO 80 % (41-73); Platelet Count 303 K/mm3 (150-400); RDW Coefficient Variation 12.4 % (11.7-14.2); RDW Standard Deviation 40.8 fL (35.1-46.3); Red Blood Cell Count 4.54 M/mm3 (3.80-5.20)
[2024-06-24 05:58] LABS: Albumin, Blood 3.5 g/dL (3.4-5.0); Albumin/Globulin Ratio 0.9 (0.8-1.8); Bilirubin, Total 0.5 mg/dL (0.1-1.0); Bun/Creatinine Ratio 20.6 (12.0-20.0); Calcium, Blood 8.9 mg/dL (8.5-10.1); Creatinine, Blood 0.68 mg/dL (0.40-1.00); Globulin, Blood 3.9 g/dL (2.2-4.0); Potassium, Blood 3.9 mmol/L (3.5-5.5); Total Protein, Blood 7.4 g/dL (6.4-8.2)
[2024-06-24] MEDS ORDERED: NS 1,000 ML IV SCH ×2 (06:25→10:30)
[2024-06-24] MEDS ORDERED: Ondansetron HCl 2 MG / ML 2ML Vial IV ONE (06:25)
[2024-06-24] MEDS ORDERED: HYDROmorphone HCl/Pf 1MG SYR IV ONE ×2 (06:40→07:15)
[2024-06-24] MEDS ORDERED: MethylPREDNISolone Sod Succ 125 MG Vial IV ONE (08:25)
[2024-06-24] MEDS ORDERED: HYDROmorphone HCl/Pf 1MG SYR IV PRN ×2 (09:10→11:35)
[2024-06-24] MEDS ORDERED: Ondansetron HCl 2 MG / ML 2ML Vial IV PRN (09:10)
[2024-06-24] MEDS ORDERED: Acetaminophen 325 MG TABLET PO PRN ×2 (09:10→10:35)
[2024-06-24 09:23] LABS: Source, Urine Clean Catch
[2024-06-24 09:29] LABS: Appearance, Urine Clear (Clear); Bilirubin, Urine Neg (Neg); Blood, Urine 2+ (Neg); Color, Urine Yellow (P-Yellow); Glucose Qualitative, Urine Neg (Neg); Ketones, Urine Neg (Neg); Leukocyte Esterase, Urine Neg (Neg); Nitrite, Urine Neg (Neg); Protein, Urine 1+ (Neg); Urobilinogen, Urine NORM (Normal)
[2024-06-24 09:40] LABS: Squamous Epithelial Cells Many /hpf (Few)
[2024-06-24 09:41] LABS: Bacteria Many /hpf; White Blood Cells, Urine 0-2 /hpf (0-5)
[2024-06-24] MEDS ORDERED: Bisacodyl 10 MG Supp PR PRN (10:30)
[2024-06-24] MEDS ORDERED: TraZODone HCl 50 MG Tab PO PRN (10:30)
[2024-06-24] MEDS ORDERED: Ondansetron 4 MG TAB PO PRN (10:35)
[2024-06-24] MEDS ORDERED: Magnesium Hydroxide Conc 10 ML UDC PO PRN (10:35)
[2024-06-24] MEDS ORDERED: OxyCODONE HCL 5 MG TAB PO PRN (10:40)
--- NOTE | 2024-06-24 11:33 | NUR ---
PT TO ROOM 216. TRANSFERRED FROM ED. HISTORY BLOODY DIARRHEA PER PT. PT TO BED. 20G SL PRESENT L AC. RATES PAIN 8.
[2024-06-24 11:35] VITALS: BP 125/78
[2024-06-24] MEDS ORDERED: Albuterol 2.5 MG/3 ML VIAL INH PRN (13:55)
[2024-06-24] MEDS ORDERED: Mometasone/Formoterol MDI 200/5 mcg 13 GM INH SCH (14:00)
[2024-06-24] MEDS ORDERED: ALPRAZolam 0.5 MG Tab PO PRN (14:00)
[2024-06-24] MEDS ORDERED: Cyclobenzaprine HCl 10 MG Tab PO SCH (14:00)
[2024-06-24] MEDS ORDERED: Calcium Carbonate 500 MG Tab Chew PO PRN (15:20)
[2024-06-24 15:22] VITALS: BP 102/70
--- NOTE | 2024-06-24 17:32 | NUR ---
END OF SHIFT PT EATING MEAL TRAY. ABD PAIN IMPROVING PER PT. DR PRAKASH IN WITH PT. SO AT BEDSIDE. IV INFUSING L ARM. WILL CONTINUE TO MONITOR.
[2024-06-24 19:49] VITALS: BP 93/54
[2024-06-24] MEDS ORDERED: Docusate Sodium 100 MG Cap PO SCH (21:00)
[2024-06-24] MEDS ORDERED: Famotidine 20 MG Tab PO SCH (21:00)
[2024-06-24] MEDS ORDERED: Lactobacil 2-S.Thermo-Bifido 1 1 Cap PO SCH (21:00)
[2024-06-25] MEDS ORDERED: DiphenhydrAMINE HCl 50 MG/ML 1ML Vial IV ONE (01:15)
[2024-06-25] MEDS ORDERED: Ondansetron HCl 2 MG / ML 2ML Vial IV PRN (01:15)
[2024-06-25] MEDS ORDERED: Loperamide HCl 2 MG Cap PO ONE (01:15)
[2024-06-25 04:13] VITALS: BP 103/65
[2024-06-25 05:49] LABS: Campylobacter Sp Not Detected (NOT DETECT)
[2024-06-25 05:50] LABS: Adenovirus F 40/41 Not Detected (NOT DETECT); Astrovirus Not Detected (NOT DETECT); Cryptosporidium Not Detected (NOT DETECT); Cyclospora Cayetanensis Not Detected (NOT DETECT); E. Coli O157 Not Detected (NOT DETECT); Entamoeba Histolytica Not Detected (NOT DETECT); Enteroaggregative E. coli-EAEC Not Detected (NOT DETECT); Enteropathogenic E. coli-EPEC Detected (NOT DETECT); Enterotoxigenic E. coli-ETEC Not Detected (NOT DETECT); Giardia Lamblia Not Detected (NOT DETECT); Norovirus GI/GII Not Detected (NOT DETECT); Plesiomonas Shigelloides Not Detected (NOT DETECT); Rotavirus A Not Detected (NOT DETECT); Salmonella Sp Not Detected (NOT DETECT); Sapovirus Not Detected (NOT DETECT); Shiga Toxin-prod E. coli-STEC Not Detected (NOT DETECT); Shigella/Enteroin E. coli-EIEC Not Detected (NOT DETECT); Vibrio Cholerae Not Detected (NOT DETECT); Vibrio Sp Not Detected (NOT DETECT); Yersinia Enterocolitica Not Detected (NOT DETECT)
[2024-06-25] MEDS ORDERED: Levothyroxine Sodium 0.112 MG Tab PO SCH (06:00)
--- NOTE | 2024-06-25 06:32 | NUR ---
STOPBOARD ASSEMBLER SUMMARY PT A/OX4. ABLE TO MAKE NEEDS KNOWN. PT PAIN AND NAUSEA POORLY CONTROLLED T/O MOST OF THE NIGHT. PT WAKEFUL T/O THE NIGHT WITH LITTLE SLEEP OR REST. PT GIVEN ORAL ZOFRAN WITH LITTLE IMPROVEMENT. PT GIVEN IV DILAUDID AT APROX 2130 FOR 9/10 ABD PAIN. PT DIAPHORETIC AND SHAKING. PT HAVE FREQUENT LOOSE STOOLS. UPON REASSESSMENT THE PT STATED SHE DIDNT FEEL PAIN HAD IMPROVED BUT SHE FELT "HIGH". THIS RN WAS STATIONED [facility] PATIENT'S ROOM. THIS RN IS IN THE PT'S ROOM HOURLY FOR MOST OF THE NIGHT. PT GIVEN DOSE OF OXYCODONE AND REPORTED NAUSEA AND PAIN CONTINUED. PT HAVING NEED FOR OXYGEN AFTER PAIN MEDS. CALL TO HOSPITALIST, SPOKE WITH DR TRIANA. ADVISED OF PT CURRENT CONDITION. NEW ORDER FOR ONE TIME DOSE OF IMODIUM AND BENADRYL. NEW ORDER FOR IV ZOFRAN. ALSO OBTAINED ORDER FOR CONTINUOUS BIOX AND OXYGEN NEEDED. PT WAS GIVEN BENADRYL, IMODIUM, AND 1MG OF DILAUDID AT APROX 0130. BETWEEN 130 AND 0500 PT WAS MOST RESTFUL AND DENIED NEED. AT APROX 0500 PT REQUESTED MORE PAIN MEDS AND SAID SHE HAD BEEN AT HER WORST FOR THE LAST 4 HOURS AND THIS RN WAITED TOO LONG TO GIVE MEDICATIONS. THIS RN LISTENED TO THE PT AND EXPRESSED FEELING SUPRISED SINCE PT HAD BEEN MOST RESTFUL AND DENIED NEED. PT GIVEN 1MG OF DILAUDID. PT WAS UPSET IT WAS NOT TWO SHE FELT PAIN WAS SEVERE. 2ND DOSE OF 1MG DILAUDID GIVEN. PT REPORTS HER PAIN IMPROVED TO 8/10. EDUCATED PT WHEN SHE CAN HAVE PAIN MEDS AGAIN AND ADVISED PT CALL RN IF PAIN UNMANAGABLE. CALL LIGHT ACCESSIBLE. CARE WILL CONTINUE UNTIL REPORT GIVEN TO ONCOMING NURSE.
[2024-06-25 07:24] VITALS: BP 101/69
[2024-06-25] MEDS ORDERED: CefTRIAXone Sodium 2,000 MG in NS 100 ML IV SCH (07:38)
[2024-06-25 08:42] LABS: Hematocrit 31.8 % (33.0-51.0); Hemoglobin 10.7 g/dL (11.5-16.0); Mean Corpuscular HGB 30.1 pg (26.0-34.0); Mean Corpuscular HGB Conc 33.6 g/dL (31.5-36.5); Mean Corpuscular Volume 89 fL (80-100); Platelet Count 161 K/mm3 (150-400); RDW Coefficient Variation 12.5 % (11.7-14.2); RDW Standard Deviation 41.1 fL (35.1-46.3); Red Blood Cell Count 3.56 M/mm3 (3.80-5.20); White Blood Cell Count 5.45 K/mm3 (4.00-11.30)
[2024-06-25] MEDS ORDERED: Enoxaparin 40 MG/0.4 ML SYR SC SCH (09:00)
[2024-06-25] MEDS ORDERED: Lactobacil 2-S.Thermo-Bifido 1 1 Cap PO SCH (09:00)
[2024-06-25 09:09] LABS: Albumin, Blood 2.8 g/dL (3.4-5.0); Albumin/Globulin Ratio 0.9 (0.8-1.8); Bilirubin, Total 0.6 mg/dL (0.1-1.0); Bun/Creatinine Ratio 16.3 (12.0-20.0); Calcium, Blood 8.7 mg/dL (8.5-10.1); Creatinine, Blood 0.8 mg/dL (0.40-1.00); Magnesium, Blood 1.6 mg/dL (1.6-2.4); Potassium, Blood 3.2 mmol/L (3.5-5.5); Total Protein, Blood 5.8 g/dL (6.4-8.2)
[2024-06-25 09:18] LABS: BAND PERCENT MAN 21 % (0-8); BASOPHILS PERCENT MAN 0 % (0-2); EOSINOPHILS PERCENT MAN 0 % (0-6); LYMPHOCYTES ABSOLUTE MAN 1.25 K/mm3 (0.84-5.20); LYMPHOCYTES PERCENT MAN 23 % (21-46); MONOCYTES ABSOLUTE MAN 0.54 K/mm3 (0.16-1.47); MONOCYTES PERCENT MAN 10 % (4-13); NEUTROPHILS ABSOLUTE MAN 3.65 K/mm3 (1.96-9.15); SEG NEUTROPHILS PERCENT MAN 46 % (41-73); TOTAL CELLS COUNTED 100
[2024-06-25] MEDS ORDERED: MethylPREDNISolone Sod Succ 125 MG Vial IV SCH (12:00)
[2024-06-25 14:57] VITALS: BP 100/69
--- NOTE | 2024-06-25 18:18 | NUR ---
SUMMARY: PT ADMITTED FOR [place]. A/O TODAY VSS. PT HAD X1 EPISODE THAT SHE DISCRIBED THAT AFTER STRAINING TO VOID AND HAVE A BM THAT IT " FELT LIKE SHE HAD A RECTAL PROLAPSE". DR MAYBERRY NOTIFIED, NO NEW ORDERS. PT TO CONTINUE ON IV STERIOD TX. PT'S PAIN IS BETTER TONIGHT. PT HAS NOT NEEDED IV DILAUDID OFTEN AND REPORTS THAT THE STERIODS HAVE HELPED. PT IS INDEP TO BATHROOM, CONTINUES TO HAVE SOME BLOODLY, LOOSE BM'S, DR MAYBERRY IS AWARE OF THIS. PT USES CALL LIGHT AND MAKES NEEDS KNOWN.
[2024-06-25 19:37] VITALS: BP 94/67
[2024-06-26 03:34] VITALS: BP 99/67
--- NOTE | 2024-06-26 04:25 | NUR ---
SHIFT SUMMARY BASHIR WAS ALERT AND FULLY ORIENTED AND INDEPENDENT IN ROOM. PT STATES THAT HER PAIN IS IMPROVED FROM PREVIOUS DAY, BUT IS STILL INTERMITTENTLY SEVERE REQUIRING AT LEAST ONE DOSE OF IV PAIN MANAGEMENT. NAUSEA HAS IMPROVED WELL. PT IS MODERATELY DISTENDED WITH HYPERACTIVE BT'S. NO ACUTE EVENTS TONIGHT.
[2024-06-26 06:15] LABS: Hematocrit 30.8 % (33.0-51.0)
[2024-06-26 06:54] LABS: Magnesium, Blood 2.1 mg/dL (1.6-2.4)
[2024-06-26 06:55] LABS: Bun/Creatinine Ratio 14.4 (12.0-20.0); Calcium, Blood 8.2 mg/dL (8.5-10.1); Creatinine, Blood 0.62 mg/dL (0.40-1.00); Phosphorus, Blood 4.3 mg/dL (2.5-4.9); Potassium, Blood 3.5 mmol/L (3.5-5.5)
[2024-06-26 07:33] VITALS: BP 90/62
[2024-06-26] MEDS ORDERED: NS 250 ML IV PRN (08:55)
--- NOTE | 2024-06-26 09:00 | NUR ---
pt laying in bed, has a painful abd, a/ox4, pleasant and cooperative with care, follows commands well, lungs are clear t/o, resp even and unlabored, no cough noted, hrr, no edema noted, ppp+2, cap refill <3 sec, vs stable, afebrile, piv to lfa site is clear and patent, bt x4, abd round soft tender, she reports the steriods help more than anything, reports no bm since yesterday, after having immodium, voids without diff, maew, up ad diego in room, vonda, call light in reach.
[2024-06-26 16:14] VITALS: BP 106/77
[2024-06-26 19:43] VITALS: BP 107/66
[2024-06-26] MEDS ORDERED: MethylPREDNISolone Sod Succ 125 MG Vial IV SCH (21:00)
[2024-06-27 02:01] VITALS: BP 98/69
--- NOTE | 2024-06-27 04:32 | NUR ---
TAXONOMY TEACHER SUMMARY PT AAOX4 AND INDEPENDENT IN ROOM. PT STILL HAVING SOME ABD PAIN BUT STATES THAT IT IS GREATLY IMPROVED COMPARED TO WHEN SHE WAS FIRST ADMITTED. HAS TOLERATED SOME LIGHT FOODS AND DENIES NAUSEA, JUST ABD PAIN. PAIN HAS BEEN WELL MANAGED WITH PRN OXYCODONE AND TYLENOL. VSS, WILL CONTINUE TO MONITOR.
[2024-06-27 06:52] LABS: BASOPHILS ABSOLUTE AUTO 0.01 K/mm3 (0.00-0.23); BASOPHILS PERCENT AUTO 0 % (0-2); EOSINOPHILS PERCENT AUTO 0 % (0-6); Hematocrit 29.2 % (33.0-51.0); Hemoglobin 9.7 g/dL (11.5-16.0); IMMATURE GRAN PERCENT AUTO 1 % (0-1); LYMPHOCYTES ABSOLUTE AUTO 1.08 K/mm3 (0.84-5.20); LYMPHOCYTES PERCENT AUTO 13 % (21-46); MONOCYTES ABSOLUTE AUTO 0.56 K/mm3 (0.16-1.47); MONOCYTES PERCENT AUTO 7 % (4-13); Mean Corpuscular HGB 30.6 pg (26.0-34.0); Mean Corpuscular HGB Conc 33.2 g/dL (31.5-36.5); Mean Corpuscular Volume 92 fL (80-100); Mean Platelet Volume 10.6 fL (9.1-12.4); NEUTROPHILS PERCENT AUTO 80 % (41-73); Platelet Count 219 K/mm3 (150-400); RDW Coefficient Variation 12.4 % (11.7-14.2); RDW Standard Deviation 41.7 fL (35.1-46.3); Red Blood Cell Count 3.17 M/mm3 (3.80-5.20); White Blood Cell Count 8.55 K/mm3 (4.00-11.30)
[2024-06-27 07:13] VITALS: BP 97/66
[2024-06-27 07:22] LABS: Bun/Creatinine Ratio 16.7 (12.0-20.0); Calcium, Blood 8.3 mg/dL (8.5-10.1); Creatinine, Blood 0.54 mg/dL (0.40-1.00); Potassium, Blood 3.7 mmol/L (3.5-5.5)
[2024-06-27] MEDS ORDERED: MetroNIDAZOLE 500 MG Tab PO SCH (09:40)
[2024-06-27] MEDS ORDERED: Azithromycin 250 MG Tab PO ONE (09:40)
[2024-06-27] MEDS ORDERED: OxyCODONE 5 mg/Acetamin 325 mg TABLET PO PRN ×2 (13:15→17:20)
[2024-06-27] MEDS ORDERED: OxyCODONE HCL 5 MG TAB PO ONE (13:15)
[2024-06-27 15:23] VITALS: BP 100/62
--- NOTE | 2024-06-27 17:43 | NUR ---
END OF SHIFT PT RESTING. SO AT BEDISIDE. RECENTLY MEDICATED WITH IV DILAUDID. NEW PERCOCET ORDERS ON CHART. WILL REATTEMPT ORAL CONTROL WITH NEXT MEDICATION. PT DENIES COMPLAINTS. IV TO SL LEFT ARM.
[2024-06-27 19:10] VITALS: BP 98/73
[2024-06-28 02:58] VITALS: BP 98/70
--- NOTE | 2024-06-28 04:59 | NUR ---
FLEET MECHANIC SUMMARY PT HAS HAD MUCH BETTER PAIN CONTROL WITH 2 TABS OF PERCOCET Q4. STILL TOLERATING SMALL AMOUNTS OF PO INTAKE AND HAS ACTUALLY GOTTEN SOME REST THROUGH THE NIGHT. ASIDE FROM PAIN CONTROL PT HAS HAD NO OTHER CONCERNS OR COMPLAINTS. VSS, WILL CONTINUE TO MONITOR.
[2024-06-28 06:36] LABS: BASOPHILS ABSOLUTE AUTO 0.02 K/mm3 (0.00-0.23); BASOPHILS PERCENT AUTO 0 % (0-2); EOSINOPHILS PERCENT AUTO 0 % (0-6); Hematocrit 30.6 % (33.0-51.0); Hemoglobin 9.9 g/dL (11.5-16.0); IMMATURE GRAN ABSOLUTE AUTO 0.16 K/mm3 (0.00-0.10); IMMATURE GRAN PERCENT AUTO 2 % (0-1); LYMPHOCYTES ABSOLUTE AUTO 0.98 K/mm3 (0.84-5.20); LYMPHOCYTES PERCENT AUTO 12 % (21-46); MONOCYTES ABSOLUTE AUTO 0.32 K/mm3 (0.16-1.47); MONOCYTES PERCENT AUTO 4 % (4-13); Mean Corpuscular HGB 29.6 pg (26.0-34.0); Mean Corpuscular HGB Conc 32.4 g/dL (31.5-36.5); Mean Corpuscular Volume 91 fL (80-100); Mean Platelet Volume 9.9 fL (9.1-12.4); NEUTROPHILS ABSOLUTE AUTO 6.49 K/mm3 (1.96-9.15); NEUTROPHILS PERCENT AUTO 81 % (41-73); Platelet Count 273 K/mm3 (150-400); RDW Coefficient Variation 12.5 % (11.7-14.2); RDW Standard Deviation 41.6 fL (35.1-46.3); Red Blood Cell Count 3.35 M/mm3 (3.80-5.20); White Blood Cell Count 7.97 K/mm3 (4.00-11.30)
[2024-06-28 06:56] LABS: Albumin, Blood 2.8 g/dL (3.4-5.0); Albumin/Globulin Ratio 0.9 (0.8-1.8); Bilirubin, Total 0.2 mg/dL (0.1-1.0); Bun/Creatinine Ratio 19.3 (12.0-20.0); Calcium, Blood 8.2 mg/dL (8.5-10.1); Creatinine, Blood 0.52 mg/dL (0.40-1.00); Globulin, Blood 3.1 g/dL (2.2-4.0); Total Protein, Blood 5.9 g/dL (6.4-8.2)
[2024-06-28 07:19] VITALS: BP 111/79
[2024-06-28] MEDS ORDERED: PRED20 PO (13:24)
[2024-06-28] MEDS ORDERED: FAMO20 PO (13:24)
[2024-06-28] MEDS ORDERED: PERCOCET 10-321 EA13 PO (13:25)
[2024-06-28] MEDS ORDERED: METR500 PO (13:25)
[2024-06-28] MEDS ORDERED: PROBIOTIC1 EA13 PO (13:26)
--- NOTE | 2024-06-28 13:38 | NUR ---
DISCHARGE DC INSTRUCT REVIEWED WITH PT AND SO. STATED UNDERTANDING. HANDWRITTEN RX PERCOCET AND WORK NOTE DISPENSED. PRINTED DISCHARGE INSTRUCT DISPENSED. DISCHARGED INTO SELF CARE WITH ABOVE DOCUMENTS. STATED UNDERSTANDING AT DISCHARGE
== END 2024-06-28 13:50 | disposition home or self-care (01) | DRG 387 ==
LOC: ER 04:54 → ERHOLD 04:55 → SURS 10:27 → ERHOLD 10:28 → SURS 11:31
PROVIDERS: Emergency Medicine; Family Medicine; Student in an Organized Health Care Education/Training Program; ADMIT Hospitalist
DX: K50.10 Crohn's disease of large intestine without complications (principal); E03.9 Hypothyroidism, unspecified; M32.9 Systemic lupus erythematosus, unspecified; M06.9 Rheumatoid arthritis, unspecified; L40.9 Psoriasis, unspecified; D63.8 Anemia in other chronic diseases classified elsewhere; J45.909 Unspecified asthma, uncomplicated; N76.0 Acute vaginitis; B96.20 Unspecified Escherichia coli [E. coli] as the cause of diseases classified elsewhere; Z86.018 Personal history of other benign neoplasm; Z98.890 Other specified postprocedural states; Z88.5 Allergy status to narcotic agent; Z91.018 Allergy to other foods; Z79.899 Other long term (current) drug therapy; Z79.891 Long term (current) use of opiate analgesic; Z79.51 Long term (current) use of inhaled steroids; Z79.890 Hormone replacement therapy; Z79.52 Long term (current) use of systemic steroids; Z87.891 Personal history of nicotine dependence
CPT/HCPCS: 36415; 74177; 80048; 80053; 81001; 83605; 83690; 83735; 84100; 85014; 85018; 85025; 87086; 87507; 94640; 94664; 94760; 94762; 96361; 96374-59; 96375; 96376; 99285-25; A9270; G0378; J0696; J1171; J1200; J1650; J2405; J2919; J7030; Q9967